=== PATIENT | male | born 1970 | race Caucasian/White ===

== ENCOUNTER → 2019-12-22 15:06 | Outpatient (CLI) | payer SELFPAY ==
--- NOTE | 2019-12-22 15:20 | RAD_ITS ---
STUDY: X-RAY CHEST REASON FOR EXAM: Male, 49 years old. COUGH -- TIGHTNESS 4 DAYS -- HAD PNEUMONIA IN SUMMER TECHNIQUE: PA and lateral views of the chest. COMPARISON: None. FINDINGS: Status post anterior cervical discectomy and fusion lower cervical spine. The lungs are clear and expanded. There is no demonstrated pleural abnormality. Normal size heart. Normal mediastinum and wild. Normal visualized pulmonary arteries. Normal visualized aortic arch and descending thoracic aorta. Normal visualized thoracic spine. Normal visualized ribs, clavicles, and shoulders. There is no demonstrated abnormality of the visualized soft tissue structures of the upper abdomen. RAD/Chest PA and Lateral IMPRESSION: Normal x-ray examination of the chest. Electronically Signed: Juanjose Coats MD at 12:29 EDT Tel , Service support ,
== END ==
PROVIDERS: PCP Internal Medicine; Referring Provider Internal Medicine; Visit Provider Internal Medicine
DX: R05 Cough (principal)
CPT/HCPCS: 71046

== ENCOUNTER → 2021-08-26 | Outpatient (CLI) | payer SELFPAY ==
--- NOTE | 2021-08-26 10:54 | US_ITS ---
STUDY: SCROTUM ULTRASOUND REASON FOR EXAM: Male, 51 years old. TESTICULAR MASS TECHNIQUE: Ultrasound evaluation of the scrotum was performed with color Doppler and static solorzano-scale imaging. COMPARISON: None. FINDINGS: RIGHT TESTICLE INTRATESTICULAR: There is a normal size of the right testicle. The right testicle measures 3.7 x 2.6 cm. There is a homogenous echotexture. There is normal arterial and normal venous vascularity. There is no demonstrated right testicular mass or cyst. EXTRATESTICULAR: The epididymis is normal in size. The epididymis head measures 1.5 cm. There is normal vascularity of the epididymis. There is a well-defined cystic structure within the epididymis, without internal echoes, consistent with an epididymal cyst. This measures 3 mm and 6mm. There is no demonstrated hydrocele. There is no demonstrated varicocele. There is no demonstrated extratesticular mass or cyst. LEFT TESTICLE INTRATESTICULAR: There is a normal size of the left testicle. The left testicle measures 3.4 x 2.1 cm. There is a homogenous echotexture. There is normal arterial and normal venous vascularity. There is no demonstrated left testicular mass or cyst. EXTRATESTICULAR: The epididymis is normal in size. The epididymis head measures 2.9 x 0.7 cm. There is normal vascularity of the epididymis. There is no demonstrated epididymal cystic structure. There is no demonstrated hydrocele. There is no demonstrated varicocele. There is no demonstrated extratesticular mass or cyst. US/Testicular with Arterial Flow IMPRESSION: There are no acute findings of the bilateral testicles without evidence for torsion. There is a right epididymal cyst correlating to the patient''s palpable abnormality. Electronically Signed: Christiano Swanson MD at 17:42 EDT ,
== END | disposition home or self-care (01) ==
LOC: US 10:53
PROVIDERS: PCP Internal Medicine; Referring Provider Internal Medicine; Visit Provider Internal Medicine
DX: N50.89 Other specified disorders of the male genital organs (principal)
CPT/HCPCS: 76870; 93976

== ENCOUNTER 2021-09-22 09:52 | Observation (INO) | payer OTHER, SELFPAY ==
[2021-09-22 09:53] VITALS: BP 112/74; PULSE 82; RESP 14; TEMP 36.4; O2SAT 100; BMI 28.1
--- NOTE | 2021-09-22 10:10 | CT_ITS ---
EXAM: CT ABDOMEN AND PELVIS WITHOUT INTRAVENOUS CONTRAST CLINICAL INDICATION: WITH 5MM LEFT KIDNEY STONE DX YESTERDAY AT THE MEDICAL CENTER WHERE HE WAS SEEN TWICE FOR PAIN CONTROL WITH NO RELIEF. D/C WITH A PAIN MEDICATION AND ZOFRAN + PHENERGAN WITH NO RELIEF. TECHNIQUE: Helically acquired images were obtained of the abdomen and pelvis without intravenous contrast. This CT exam was performed using one or more of the following dose reduction techniques: automated exposure control, adjustment of the mA and/or kV according to patient size, and/or use of iterative reconstruction technique. This report was created using [employer] technology. RADIATION DOSE: CTDIvol = 8.53 mGy, DLP = 507.29 mGy-cm COMPARISON: None FINDINGS: LOWER THORAX: Mild atelectasis in the lung bases. No cardiomegaly. No significant pericardial effusion. ABDOMEN: LIVER: Unremarkable. Homogeneous. GALLBLADDER AND BILE DUCTS: Unremarkable. No calcified gallstones. No gallbladder distention or wall edema. No intra- or extrahepatic biliary ductal dilation. PANCREAS: Unremarkable. No focal cystic mass. SPLEEN: Unremarkable. Normal size without focal cystic or solid mass. ADRENALS: Unremarkable. No nodules. KIDNEYS AND URETERS: 3.5 mm calculus at the left UVJ with trace hydronephrosis and mild hydroureter. Mild fat induration adjacent to the left kidney and left ureter. Normal renal size and position. STOMACH AND BOWEL: Unremarkable. No stomach or bowel distention. No focal inflammatory change. PELVIS: APPENDIX: No evidence of acute appendicitis. BLADDER: Unremarkable. REPRODUCTIVE: Unremarkable as visualized. No mass. ABDOMEN and PELVIS: INTRAPERITONEAL SPACE: Unremarkable. No ascites or other fluid collection. No free air. BONES/JOINTS: Unremarkable. No suspicious lytic or blastic abnormality. SOFT TISSUES: Unremarkable. No discrete abdominal or pelvic wall hernia. VASCULATURE: Unremarkable. Abdominal aorta is non-dilated. LYMPH NODES: Mildly enlarged retroperitoneal lymph nodes with short axis measuring up to [address]/Abdomen/Pelvis without Cont IMPRESSION: 3.5 mm calculus at the left UVJ with trace hydronephrosis and mild hydroureter. Left perinephric/periureteral stranding with reactive-appearing retroperitoneal lymph nodes just possibility of urinary tract infection. Recommend correlating with urinalysis. Electronically Signed: Devyn Weeks MD ([place]) at 11:37 EDT ,
--- NOTE | 2021-09-22 10:11 | EDS_ITS ---
HPI History of Present Illness Chief Complaint: Flank Pain Informant: patient and spouse/S.O. Narrative Narrative: 1-year-old male presenting to the emergency room chief complaint of left flank pain. Patient states that yesterday he was at an outside hospital and was diagnosed with a 5 mm proximal ureteral kidney stone. He states that he returned for a second visit due to vomiting and pain control. He states that the are advised that should he need to come to the hospital again that he should come to [place] because that facility did not have a urologist. Patient notes persistent vomiting and flank pain. PFSH PFSH Allergy/AdvReac Type Severity Reaction Status Date / Time acetaminophen [From Percocet] AdvReac Nausea Verified 09/22/21 09:55 oxycodone [From Percocet] AdvReac Nausea Verified 09/22/21 09:55 Social History (Updated 09/22/21 @ 10:[address] Vasquez Garcia, DO) household members: spouse current gender identity: male Smoking Status: Never smoker substance use type: does not use ROS ROS ED Constitutional Constitutional ED: Denies chills, fever(s) or weight loss Eyes Eyes: Denies change in vision or diplopia ENT ENT ED: Denies ear pain, rhinorrhea or sore throat Cardiovascular Cardiovascular: Denies chest pain, orthopnea, palpitations or racing heartbeat Respiratory/Chest Respiratory/Chest: Denies cough, dyspnea or orthopnea Gastrointestinal Gastrointestinal: Reports abdominal pain, nausea and vomiting; Denies diarrhea Genitourinary Genitourinary ED: Denies dysuria, hematuria or urinary frequency Musculoskeletal Musculoskeletal: Reports back pain; Denies arthralgias or myalgias Integumentary Denies abscess or rash Neurologic Neurologic: Denies headache(s) or weakness Psychiatric Psychiatric: Denies anxiety, depression, suicidal ideation or suicidal thoughts Endocrine Endocrinology: Denies polydipsia, polyphagia or polyuria Allergic/Immunologic Allergic/Immunologic ED: Denies mouth swelling, tongue swelling or urticaria EXAM Physical Exam Const Vital Signs: 09/22/21 09:53 Temperature 97.6 F L Temperature Source Temporal Pulse Rate 82 Respiratory Rate 14 Blood Pressure 112/74 Blood Pressure Mean 86 Pulse Ox 100 Oxygen Delivery Method Room Air Positive well nourished and well developed General Appearance ED: well developed HEENT Reports normocephalic, head/scalp atraumatic and moist mucous membranes Eyes PERRL and EOMs intact bilaterally Neck no lymphadenopathy, supple and no JVD Resp normal respiratory effort and clear to auscultation bilaterally Cardio regular rate, regular rhythm and no murmurs GI Palpation: soft and tender LLQ Back/Spine no CVA tenderness and normal ROM Extremity normal to inspection General Extremety ED: Negative for edema General Extremity: Negative for edema Neuro oriented x3 and CN's II-XII intact bilaterally Sensorium / Orientation: alert Motor Exam: strength 5/5 throughout Psych mental status grossly normal Mood & Affect: Negative for depressed or tearful Skin no rashes or lesions noted and no wounds MDM MDM MDM Narrative Medical decision making narrative: IV was established and the patient received Toradol morphine Zofran and fluids. Patient's white count is elevated at 16.4. Creatinine 1.68 and I do not have an old creatinine to compare to. Urinalysis shows 0-5 white cells 0-5 squamous cells no red cells and no bacteria. CT of the abdomen pelvis was obtained which demonstrates a 3.5 mm distal ureteral stone at the UVJ. There is some associated hydronephrourete as well as perinephric and periureteral stranding and reactive nodes. Clinically the patient is doing better. This is his third emergency department visit in 24 hours. I spoke with our urologist Dr. Barkley and the patient will be admitted for further care and observation. Lab Data Attestation: I reviewed the patient's lab results. Labs: Laboratory Results - last 24 hr 09/22/21 09/22/21 09/22/21 11:00 11:00 11:27 WBC 16.4 H RBC 4.71 Hgb 14.4 Hct 41.7 MCV 88.5 MCH 30.6 MCHC 34.5 RDW Std Deviation 41.2 RDW Coeff of Linda 12.7 Plt Count 173 MPV 10.7 Immature Gran % (Auto) 0.400 Neut % (Auto) 82.3 H Lymph % (Auto) 7.9 L [place] % (Auto) 9.0 Eos % (Auto) 0.2 Baso % (Auto) 0.2 Absolute Neuts (auto) 13.5 H Absolute Lymphs (auto) 1.29 Nucleated RBC % 0 Sodium 139 Potassium 4.1 Chloride 109 H Carbon Dioxide 27.0 Anion Gap 3 L BUN 23 H Creatinine 1.68 H Estim Creat Clear Calc 48.09 Est GFR (MDRD) Af Amer 55 L Est GFR (MDRD) Non-Af 46 L BUN/Creatinine Ratio 13.7 Glucose 115 H Calcium 8.8 Urine Color Yellow Urine Clarity Clear Urine pH 5.0 Ur Specific [place] 1.025 Urine Protein 15 H Urine Glucose (UA) Normal Urine Ketones 5 H Urine Occult Blood Negative Urine Nitrite Negative Urine Bilirubin Negative Urine Urobilinogen Normal Ur Leukocyte Esterase Negative Urine RBC 0 SEEN Urine WBC 0-5 SEEN Ur Squamous Epith Cells 0-5 SEEN Urine Bacteria 0 SEEN Urine Mucus 0 SEEN Radiography Diagnostic Testing: Clinical Impression(s) from Imaging Studies Abdomen/Pelvis CT 09/22/21 10:10 IMPRESSION: 3.5 mm calculus at the left UVJ with trace hydronephrosis and mild hydroureter. Left perinephric/periureteral stranding with reactive-appearing retroperitoneal lymph nodes just possibility of urinary tract infection. Recommend correlating with urinalysis. Electronically Signed: Devyn Weeks MD ([place]) at 11:37 EDT Reading Location ID and State: / [place] , Service support , Discharge Plan Dx/Rx/DC Orders Clinical Impression: Renal colic on left side, Kidney stone on left side, Vomiting, Hydronephrosis, Hydroureter Disposition Disposition: Acute Care [facility]
[2021-09-22] MEDS: 0.9% Normal Saline 1,000 ML 999 ML IV (11:00)
[2021-09-22] MEDS: Ketorolac 30 MG/ML Syringe IV (11:00)
[2021-09-22] MEDS: Morphine 4 MG/ML Syringe IV ×2 (11:01→12:17)
[2021-09-22] MEDS: Ondansetron 4 MG/2 ML Vial IV ×2 (11:01→12:16)
[2021-09-22 11:10] LABS: Absolute Lymphocyte Count 1.29 X10^3/uL (0.83-4.51); Absolute Neutrophil Count 13.5 X10^3/uL (2.0-7.7); Basophil# 0.03 X10^3/uL; Basophil% 0.2 % (0-1); Eosinophil# 0.03 X10^3/uL; Eosinophils% 0.2 % (0-5); Hematocrit 41.7 % (40-54); Hemoglobin 14.4 g/dL (13.0-16.5); Lymphocyte # 1.29 X10^3/ul (0.83-4.51); Lymphocyte % 7.9 % (19-41); Mean Corp Hgb Conc 34.5 g/dL (32-36); Mean Corpuscular Hgb 30.6 pg (27.0-32.0); Mean Corpuscular Volume 88.5 fL (80-94); Mean Platelet Vol. 10.7 fl (6.2-12.0); Monocyte# 1.48 X10^3/uL; NRBC Flagged by Analyzer 0 % (0-5); Neutrophil % 82.3 % (47-70); Platelet Count 173 K/mm3 (150-450); RBC Distribution Width CV 12.7 % (11.6-14.6); RBC Distribution Width SD 41.2 fl (35.1-43.9); Red Blood Count 4.71 M/mm3 (4.6-6.2); White Blood Count 16.4 K/mm3 (4.4-11.0)
[2021-09-22 11:23] LABS: Anion Gap 3 (5-15); BUN 23 mg/dL (7-18); BUN/Creat Ratio 13.7 RATIO (10-20); Calcium,Total 8.8 mg/dL (8.5-10.1); Chloride 109 mmol/L (98-107); Creatinine, Serum 1.68 mg/dL (0.70-1.30); EST Glomerular Filtration Rate 46 mL/min (>60); Est Glom Filt Rate - Afr Amer 55 mL/min (>60); Estimated Creatinine Clearance 48.09 ml/min; Glucose 115 mg/dL (74-106); Potassium 4.1 mmol/L (3.5-5.1); Sodium Level 139 mmol/L (136-145)
[2021-09-22 11:35] LABS: Bacteria 0 SEEN /hpf (None Seen); Mucous, Urine 0 SEEN /hpf (<or=2+); Red Blood Cells-Urine 0 SEEN /hpf (0-5)
[2021-09-22 11:41] LABS: Color, Urine Yellow (Yellow); Glucose, Dipstick Normal (Normal); Ketone-Dipstick 5 mg/dl (Negative); Leukocyte Esterase-Dipstick Negative /ul (Negative); Nitrite-Dipstick Negative (Negative); Occult Blood-Urine Negative /ul (Negative); Protein-Dipstick 15 mg/dl (Negative); Specific Gravity, Urine 1.025 (1.002-1.030); Urine Bilirubin Dipstick Negative (Negative); Urine Clarity Clear (Clear); Urine Urobilinogen Normal (Normal)
[2021-09-22 12:02] LABS: White Blood Cells 0-5 SEEN /hpf (0-5)
[2021-09-22 12:03] LABS: Squamous Epithelial Cells - UA 0-5 SEEN /hpf (0-5)
[2021-09-22 12:27] VITALS: BP 118/71; PULSE 81; RESP 14; TEMP 36.5
--- NOTE | 2021-09-22 12:36 | PCM.HP.STD ---
HPI - General General Date of Admission: 09/22/21 Date of Service: 09/22/21 Chief Complaint: Left kidney stone nausea vomiting HPI Narrative IZABELLA TONY, is a 51 M who presents with a 3.5 mm stone in the distal left ureter this is the third time in the emergency room with severe nausea vomiting and severe pain off and on has not been able to pass a stone and continues to have severe pain from the stone. [facility] Home Medications dextroamphetamine-amphetamine ER 15 mg 24hr capsule,extend release 1 cap PO DAILY 09/22/21 [History Last Taken Unknown] hydrocodone-acetaminophen 5-325mg 5mg-325mg 1 tab PO Q6H PRN PRN Pain 09/22/21 [History Last Taken Unknown] ondansetron 4 mg disintegrating tablet 1 tab PO Q8 PRN Nausea 09/22/21 [History Last Taken Unknown] tamsulosin 0.4 mg capsule 1 cap PO DAILY 09/22/21 [History Last Taken Unknown] zolpidem 10 mg tablet 1 tab PO DAILY 09/22/21 [History Last Taken Unknown] Allergy/AdvReac Type Severity Reaction Status Date / Time acetaminophen [From Percocet] AdvReac Nausea Verified 09/22/21 09:55 oxycodone [From Percocet] AdvReac Nausea Verified 09/22/21 09:55 Social History household members: spouse current gender identity: male Smoking Status: Never smoker substance use type: does not use ROS Constitutional Constitutional: Denies chills, fever(s) or malaise Eyes Eyes: Denies blurry vision or change in vision ENT HEENT: Reports none Cardiovascular Cardiovascular: Denies chest pain or palpitations Respiratory/Chest Respiratory/Chest: Denies cough or shortness of breath with exertion Gastrointestinal Gastrointestinal: Denies abdominal pain, constipation or diarrhea Musculoskeletal Musculoskeletal: Denies back pain, joint stiffness or joint swelling Integumentary Integumentary: Denies dry skin, jaundice, lesions or rash Neurologic Neurologic: Denies confusion, syncope or weakness Psychiatric Psychiatric: Reports none; Denies anxiety or depression Endocrine Endocrinology: Denies excessive sweating, fatigue or flushing Hematologic/Lymphatic Hematologic/Lymphatic: Denies anemia, easy bleeding or easy bruising Vital Signs Vital Signs Vital Signs: 09/22/21 09:53 08/01/22 12:27 09/22/21 12:27 Temperature 97.6 F L 97.7 F L Temperature Source Temporal Oral Pulse Rate 82 81 81 Respiratory Rate 14 14 14 Blood Pressure 112/74 118/71 118/71 Blood Pressure Mean 86 86 86 Pulse Ox 100 Oxygen Delivery Method Room Air Weight Weight: 81.647 kg Body Mass Index (BMI) 28.1 Physical Exam Const alert and oriented x3 General Appearance: cooperative HEENT normocephalic, head/scalp atraumatic, EAC's normal and TM's normal bilaterally Eyes PERRL and EOMs intact bilaterally Pupil: sluggish Neck no lymphadenopathy, supple and no JVD General: trachea midline Lymph Lymphatic: no lymphadenopathy noted, lymphedema and lymphadenopathy Resp normal respiratory effort, normal air movement and clear to auscultation bilaterally Cardio regular rate, regular rhythm and peripheral pulses 2+ throughout GI soft to palpation, non-tender and non-distended Extremity normal capillary refill and no clubbing, cyanosis or edema General Extremity: no tenderness to palpation of joints or extremities Skin no rashes or lesions noted General Skin Exam: turgor normal Lesions: no lesions Rashes: no rashes Neuro CN's II-XII intact bilaterally Speech: speech normal Motor Exam: strength 5/5 throughout; Negative for general weakness Psych thought process normal, cooperative and affect normal Appearance: appropriate Results Medical Records Data Attestation: I reviewed the patient's medical records Lab / Micro Data Attestation: I reviewed the patient's lab results. Result Diagrams: 09/22/21 11:00 09/22/21 11:00 Labs: Laboratory Results - last 24 hr 09/22/21 11:00: WBC 16.4 H, RBC 4.71, Hgb 14.4, Hct 41.7, MCV 88.5, MCH 30.6, MCHC 34.5, RDW Std Deviation 41.2, RDW Coeff of Linda 12.7, Plt Count 173, MPV 10.7, Immature Gran % (Auto) 0.400, Neut % (Auto) 82.3 H, Lymph % (Auto) 7.9 L, [place] % (Auto) 9.0, Eos % (Auto) 0.2, Baso % (Auto) 0.2, Absolute Neuts (auto) 13.5 H, Absolute Lymphs (auto) 1.29, Nucleated RBC % 0 09/22/21 11:00: Sodium 139, Potassium 4.1, Chloride 109 H, Carbon Dioxide 27.0, Anion Gap 3 L, BUN 23 H, Creatinine 1.68 H, Estim Creat Clear Calc 48.09, Est GFR (MDRD) Af Amer 55 L, Est GFR (MDRD) Non-Af 46 L, BUN/Creatinine Ratio 13.7, Glucose 115 H, Calcium 8.8 09/22/21 11:27: Urine Color Yellow, Urine Clarity Clear, Urine pH 5.0, Ur Specific [place] 1.025, Urine Protein 15 H, Urine Glucose (UA) Normal, Urine Ketones 5 H, Urine Occult Blood Negative, Urine Nitrite Negative, Urine Bilirubin Negative, Urine Urobilinogen Normal, Ur Leukocyte Esterase Negative, Urine RBC 0 SEEN, Urine WBC 0-5 SEEN, Ur Squamous Epith Cells 0-5 SEEN, Urine Bacteria 0 SEEN, Urine Mucus 0 SEEN Radiology Impression Abdomen/Pelvis CT 09/22/21 10:10 IMPRESSION: 3.5 mm calculus at the left UVJ with trace hydronephrosis and mild hydroureter. Left perinephric/periureteral stranding with reactive-appearing retroperitoneal lymph nodes just possibility of urinary tract infection. Recommend correlating with urinalysis. Electronically Signed: Devyn Weeks MD ([place]) at 11:37 EDT Reading Location ID and State: [address] [place] [address] , Service support , Assessment & Plan Assessment/Plan (1) Renal colic on left side: PLAN: Admit for IV fluids Flomax pain control check a KUB tomorrow morning plan for intervention if he fails to pass a stone. (2) Kidney stone on left side:
[2021-09-22 14:06] VITALS: BMI 28.1
[2021-09-22 14:30] VITALS: BP 114/73; PULSE 74; RESP 14; TEMP 36.9; O2SAT 100
[2021-09-22] MEDS: 0.9% Normal Saline 1,000 ML 125 ML IV ×2 (14:33→22:00)
[2021-09-22] MEDS: 0.9% Saline Lock 10 ML Syringe IV ×2 (14:33→17:47)
[2021-09-22] MEDS: Morphine 2 MG/ML Syringe IV ×2 (14:33→19:49)
[2021-09-22] MEDS: Tamsulosin HCl 0.4 MG Capsule PO (17:46)
[2021-09-22] MEDS: Ketorolac 15 MG/ML Vial IV (17:46)
[2021-09-22 19:53] VITALS: BP 118/71; PULSE 80; RESP 16; TEMP 37.2; O2SAT 99
[2021-09-23] MEDS: Ketorolac 15 MG/ML Vial IV ×3 (00:29→18:09)
[2021-09-23] MEDS: 0.9% Saline Lock 10 ML Syringe IV ×2 (00:29→08:59)
[2021-09-23 03:08] VITALS: BP 112/68; PULSE 72; RESP 16; TEMP 37.2; O2SAT 99
--- NOTE | 2021-09-23 05:00 | RAD_ITS ---
EXAM: XR ABDOMEN, 1 VIEW CLINICAL INDICATION: kidney stone TECHNIQUE: Frontal supine view of the abdomen/pelvis. This report was created using [employer] report generation technology. COMPARISON: None. FINDINGS: LOWER THORAX: No acute pathology. GASTROINTESTINAL TRACT: Unremarkable. Non-obstructive. No bowel or stomach distention. ORGANS: Unremarkable as visualized. No organomegaly. No abnormal calcifications. BONES/JOINTS: Unremarkable. SOFT TISSUES: No acute pathology. There is a small calcification measuring about 2 mm overlying the left side of the sacrum medial to the expected course of the ureter. Other phleboliths in the pelvis. RAD/Abdomen Single View IMPRESSION: No definite stones overlying the kidneys or along the course of the ureters. Phleboliths in the pelvis. Electronically Signed: Sav Ortiz MD at 5:19 EDT ,
[2021-09-23] MEDS: 0.9% Normal Saline 1,000 ML 125 ML IV ×2 (05:42→16:53)
[2021-09-23] MEDS: Ondansetron 4 MG/2 ML Vial IV ×4 (05:44→23:01)
--- NOTE | 2021-09-23 06:47 | PCM.CONS.B ---
Consult Date of Consult: 09/23/21 Reason for Consult 51-year-old male admitted for kidney stone only about 3.5 mm in size distal left ureter, the straining all the urine no stone has been seen KUB I think I can see the stone in the distal ureter on the left side. Patient is feeling much better after hydration pain medications he had shower no more severe colic still has a little bit of pressure on the left side but has not passed a stone Plan will be to taken the surgery tomorrow ureteroscopy laser basket and possible stent if he fails to pass a stone conservatively.
[2021-09-23 09:00] VITALS: BP 128/82; PULSE 86; RESP 16; TEMP 36.9; O2SAT 96
[2021-09-23] MEDS: Morphine 2 MG/ML Syringe IV ×6 (10:21→23:03)
[2021-09-23 15:00] VITALS: BP 139/88; PULSE 79; RESP 16; TEMP 36.8; O2SAT 96
[2021-09-23] MEDS: Tamsulosin HCl 0.4 MG Capsule PO (17:18)
[2021-09-23 20:25] VITALS: BP 147/95; PULSE 85; RESP 16; TEMP 36.6; O2SAT 96
[2021-09-24] VITALS (8 sets, daily range): BP systolic 108–137; BP diastolic 66–87; PULSE 75–90; RESP 16–18; TEMP 36.6–36.8; O2SAT 94–98; BMI 28.1
[2021-09-24] MEDS: 0.9% Normal Saline 1,000 ML 125 ML IV ×2 (00:10→07:46)
[2021-09-24] MEDS: Ketorolac 15 MG/ML Vial IV ×3 (00:10→13:34)
[2021-09-24] MEDS: Morphine 2 MG/ML Syringe IV ×3 (04:14→12:59)
[2021-09-24 06:19] LABS: Absolute Lymphocyte Count 1.26 X10^3/uL (0.83-4.51); Absolute Neutrophil Count 7.5 X10^3/uL (2.0-7.7); Basophil# 0.04 X10^3/uL; Basophil% 0.4 % (0-1); Eosinophil# 0.34 X10^3/uL; Eosinophils% 3.3 % (0-5); Hematocrit 36.5 % (40-54); Hemoglobin 12.3 g/dL (13.0-16.5); Lymphocyte # 1.26 X10^3/ul (0.83-4.51); Lymphocyte % 12.3 % (19-41); Mean Corp Hgb Conc 33.7 g/dL (32-36); Mean Corpuscular Hgb 30.2 pg (27.0-32.0); Mean Corpuscular Volume 89.7 fL (80-94); Mean Platelet Vol. 10.4 fl (6.2-12.0); Monocyte# 1.03 X10^3/uL; Monocyte% 10.1 % (0-10); NRBC Flagged by Analyzer 0 % (0-5); Neutrophil # 7.51 X10^3/uL (2.7-7.7); Neutrophil % 73.6 % (47-70); Platelet Count 151 K/mm3 (150-450); RBC Distribution Width CV 12.5 % (11.6-14.6); RBC Distribution Width SD 41.1 fl (35.1-43.9); Red Blood Count 4.07 M/mm3 (4.6-6.2); White Blood Count 10.2 K/mm3 (4.4-11.0)
[2021-09-24 06:49] LABS: Anion Gap 3 (5-15); BUN 14 mg/dL (7-18); BUN/Creat Ratio 15.6 RATIO (10-20); Chloride 115 mmol/L (98-107); EST Glomerular Filtration Rate 94 mL/min (>60); Est Glom Filt Rate - Afr Amer 114 mL/min (>60); Estimated Creatinine Clearance 89.77 ml/min; Glucose 107 mg/dL (74-106); Potassium 3.9 mmol/L (3.5-5.1); Sodium Level 143 mmol/L (136-145)
[2021-09-24] MEDS: Ondansetron 4 MG/2 ML Vial IV ×2 (07:34→11:55)
[2021-09-24] MEDS: 0.9% Saline Lock 10 ML Syringe IV (12:59)
--- NOTE | 2021-09-24 15:20 | CALC_PTH ---
PATIENT: IZABELLA TONY LOC: [facility]3 U#:[id number] AGE/SX: 51/M ROOM: [facility] RE09/22/[address]: Dr. Itz Barkley MD : 1970 BED: 1 DIS: 09/24/2021 SPEC #: [id number] RECD: 09/24/21 16:19 STATUS: MATIAS STAPLETON #: [id number] FOZIA: 09/24/21 15:[address]: Itz Barkley DEPT: SURGICAL PATHOLOGY RECD BY: Janet Ahmadi ENTERED: 09/25/21 09:42 SP TYPE: Calculi OTHR DR: Dr. Mary Cole, DO Tissues: CALCULI Procedures: Surgery Specimen Level I HEADER OPERATION: Cysto, balloon dilation, ureteroscopy, extraction stone PRE-OP DIAGNOSIS: Renal colic left side, kidney stone left side TISSUE SUBMITTED: Kidney stone (calculi) GROSS DIAGNOSIS Fragment of stone, clinically left kidney stone. TESS:alex 09/26/2021 COMMENT The calculus is submitted in its entirety for chemical stone analysis. The results from this study will be reported separately. GROSS DESCRIPTION Received is one container labeled with the patient's name and not further designated. The specimen consists of a fragment of brownish-black stone measuring 0.3 x 0.2 x 0.1 cm. The entire specimen is submitted for stone analysis. / TESS:alex 09/25/2021 CPT: 81837
--- NOTE | 2021-09-24 15:26 | PCM.DC.SUM ---
Providers Date of Admission: 09/22/21 Primary Care Physician: Dr. Mary Cole DO Reason For Visit: KIDNEY STONE Diagnosis Discharge Diagnosis (1) Renal colic on left side: Status: Acute Code(s): N23 - Unspecified renal colic (2) Kidney stone on left side: Status: Acute Code(s): N20.0 - Calculus of kidney Medications at Discharge Home Medications dextroamphetamine-amphetamine ER 15 mg 24hr capsule,extend release 1 cap PO DAILY 09/22/21 ondansetron 4 mg disintegrating tablet 1 tab PO Q8 PRN Nausea 09/22/21 tamsulosin 0.4 mg capsule 1 cap PO DAILY 09/22/21 zolpidem 10 mg tablet 1 tab PO DAILY 09/22/21 ciprofloxacin HCl 500 mg tablet (Cipro) 500 mg PO BID #10 tabs 09/24/21 ibuprofen 600 mg tablet 600 mg PO Q6H PRN fever or pain #20 tabs 09/24/21 Hospital Course Summary of Care Provided Hospital Course: Failed to pass stone and had surgerical intevention on 09/24 Physical Exam Const alert and oriented x3 General Appearance: cooperative HEENT normocephalic, head/scalp atraumatic, EAC's normal and TM's normal bilaterally Eyes PERRL and EOMs intact bilaterally Pupil: sluggish Neck no lymphadenopathy, supple and no JVD General: trachea midline Lymph Lymphatic: no lymphadenopathy noted, lymphedema and lymphadenopathy Resp normal respiratory effort, normal air movement and clear to auscultation bilaterally Cardio regular rate, regular rhythm and peripheral pulses 2+ throughout GI soft to palpation, non-tender and non-distended Extremity normal capillary refill and no clubbing, cyanosis or edema General Extremity: no tenderness to palpation of joints or extremities Skin no rashes or lesions noted General Skin Exam: turgor normal Lesions: no lesions Rashes: no rashes Neuro CN's II-XII intact bilaterally Speech: speech normal Motor Exam: strength 5/5 throughout; Negative for general weakness Psych thought process normal, cooperative and affect normal Appearance: appropriate Weight / BMI Weight Weight: 81.647 kg Body Mass Index (BMI) 28.1 ABG / Lab / Microbiology Data Result Diagrams: 09/24/21 05:56 09/24/21 05:56 Laboratory: Laboratory Results - last 24 hr 09/24/21 05:56: WBC 10.2, RBC 4.07 L, Hgb 12.3 L, Hct 36.5 L, MCV 89.7, MCH 30.2, MCHC 33.7, RDW Std Deviation 41.1, RDW Coeff of Linda 12.5, Plt Count 151, MPV 10.4, Immature Gran % (Auto) 0.300, Neut % (Auto) 73.6 H, Lymph % (Auto) 12.3 L, [place] % (Auto) 10.1 H, Eos % (Auto) 3.3, Baso % (Auto) 0.4, Absolute Neuts (auto) 7.5, Absolute Lymphs (auto) 1.26, Nucleated RBC % 0 09/24/21 05:56: Sodium 143, Potassium 3.9, Chloride 115 H, Carbon Dioxide 25.0, Anion Gap 3 L, BUN 14, Creatinine 0.90, Estim Creat Clear Calc 89.77, Est GFR (MDRD) Af Amer 114, Est GFR (MDRD) Non-Af 94, BUN/Creatinine Ratio 15.6, Glucose 107 H, Calcium 8.0 L D/C Instructions Discharge Diet: No restrictions Discharge Activity: Return to Normal Activity Please Follow Up With: Itz Barkley MD When: call for appt Meaningful Use Info Meaningful Use Diagnoses (Choose all that apply): None applicable Discharge Plan Admission Admit Date/Time: 09/22/21 12:32 Primary Reason for Your Visit: left kidney stone Attending Provider: Itz Barkley Primary Care Provider: Mary Cole Discharge Orders/Prescriptions Prescriptions: New ciprofloxacin HCl [Cipro] 500 mg tablet 500 mg PO BID Qty: 10 0RF ibuprofen 600 mg tablet 600 mg PO Q6H PRN (Reason: fever or pain) Qty: 20 0RF Continued tamsulosin 0.4 mg capsule 1 cap PO DAILY Label Comments: TAKE 1 CAPSULE BY MOUTH ONCE DAILY zolpidem 10 mg tablet 1 tab PO DAILY Label Comments: TAKE 1 TABLET BY MOUTH EVERY DAY AT BEDTIME ondansetron 4 mg tablet,disintegrating 1 tab PO Q8 PRN (Reason: Nausea) Label Comments: DISSOLVE 1 TABLET IN MOUTH EVERY 8 HOURS NEEDED FOR NAUSEA AND VOMITING dextroamphetamine-amphetamine 15 mg capsule,extended release 24hr 1 cap PO DAILY Label Comments: TAKE 1 CAPSULE BY MOUTH DAILY EVERY MORNING Discontinued hydrocodone-acetaminophen 5-325 mg tablet 1 tab PO Q6H PRN PRN (Reason: Pain) Label Comments: TAKE 1 TABLET BY MOUTH EVERY 6 HOURS NEEDED FOR PAIN Referrals / Follow Up: Itz Barkley MD [Med Staff - Active Staff] - Mary Cole DO [Primary Care Provider] - Disposition Discharge Orders: Discharge Patient (Routine); Ordered 09/24/21 Ordered By: Dr. Itz Barkley
--- NOTE | 2021-09-24 15:28 | DCINST_ITS ---
Discharge Instructions Diet Discharge Diet: No restrictions and Light diet - advance as tolerated Activity Discharge Activity: Return to Normal Activity May shower in (days): 1 Dressing / Incision Call your doctor if you observe: Fever of 101 or Higher Follow Up Care Please Follow Up With: Itz Barkley MD When: call for appt. Test Results: Test results from this visit will be discussed in further detail at your follow- up appointment, if applicable. Discharge Plan Admission Admit Date/Time: 09/22/21 12:32 Primary Reason for Your Visit: left kidney stone Attending Provider: Itz Barkley Primary Care Provider: Mary Cole Discharge Orders/Prescriptions Prescriptions: New ciprofloxacin HCl [Cipro] 500 mg tablet 500 mg PO BID Qty: 10 0RF ibuprofen 600 mg tablet 600 mg PO Q6H PRN (Reason: fever or pain) Qty: 20 0RF Continued tamsulosin 0.4 mg capsule 1 cap PO DAILY Label Comments: TAKE 1 CAPSULE BY MOUTH ONCE DAILY zolpidem 10 mg tablet 1 tab PO DAILY Label Comments: TAKE 1 TABLET BY MOUTH EVERY DAY AT BEDTIME ondansetron 4 mg tablet,disintegrating 1 tab PO Q8 PRN (Reason: Nausea) Label Comments: DISSOLVE 1 TABLET IN MOUTH EVERY 8 HOURS NEEDED FOR NAUSEA AND VOMITING dextroamphetamine-amphetamine 15 mg capsule,extended release 24hr 1 cap PO DAILY Label Comments: TAKE 1 CAPSULE BY MOUTH DAILY EVERY MORNING Discontinued hydrocodone-acetaminophen 5-325 mg tablet 1 tab PO Q6H PRN PRN (Reason: Pain) Label Comments: TAKE 1 TABLET BY MOUTH EVERY 6 HOURS NEEDED FOR PAIN Referrals / Follow Up: Itz Barkley MD [Med Staff - Active Staff] - Mary Cole DO [Primary Care Provider] - Disposition Discharge Orders: Discharge Patient (Routine); Ordered 09/24/21 Ordered By: Dr. Itz Barkley
--- NOTE | 2021-09-24 16:01 | PCM.OPRPT ---
Report of Operation Date of Procedure: 09/24/21 Pre-Operative Diagnosis: Left ureteral calculi causing obstruction Post-Operative Diagnosis: Same Surgery/Procedure Performed:: Cystoscopy, left retrograde pyelogram interpretation of fluoroscopic images, balloon dilation of the left ureter, left ureteroscopy extraction of stone, left stent placement Description of Surgical Findings:: This is a patient who presents to the hospital for treatment for an obstructing distal ureter calculi. I discussed with the patient how the surgery would be performed and we reviewed the risks and benefits of the surgery. The risk and benefits include the risk of failure to remove the stone completely and that the patient may need multiple procedures. We discussed the risk of an infection, the risk of bleeding. We discussed the very rare risk of serious complicated injury to the ureter. The patient understands that if the stone is not able to be removed safely that we may abort the procedure and place a stent. After full discussion and all questions address with the patient the consent form was signed the side was marked appropriately and the patient was taken back to the operating room for the procedure. The patient was taken back to the operating room. After induction of anesthesia by the anesthesiology team the patient was placed in dorsolithotomy position. The genitals were prepped and draped in usual sterile fashion. I went into the bladder with a 21 [place] rigid cystourethroscope through the urethra. Upon entering the bladder I inspected the trigone the left and right ureteral orifice and the bladder itself. The left ureteral orifice was very inflamed and swollen I then cannulated the left ureteral orifice and advanced a 0.038 Glidewire up into the kidney. Then over the Glidewire I advanced a 5 Fr Ureteral catheter and performed a retrograde pyelogram with about 10cc of contrast, to delineate the anatomy and identify the stone location. Then a ureteral balloon dilator was advanced over the wire and the distal ureter was balloon dilated with a 12 Fr x 5cm balloon dilator. After 3 minutes of dilating the ureter the balloon was backloaded off the 0.038 glidewire then the safety wire was left in place. I then placed a second 0.038 Guidewire as a working wire and over the working 0.038 guidewire I went in with the abril rigide 7.5fr ureteroscope. I was able to go inside with the 7.5Fr abril rigid utereroscope and I pulled out the working guidewire and then through the 7.5 fr simirigid ureteroscope removed the stone from the bladder with a basket. The stone was sent off for analysis. A retrograde pyelogram was performed with 10cc of contrast and no extravasation of contrast or perforation was identified in the ureter there was some mild irritation of the ureter where the stone was located. I then backed out of the ureter left the wire in place and then over the 0.038 guidewire I placed a double coiled pigtail ureteral stent. The ureteral stent was advanced over the 0.038 guidewire under direct fluoroscopic guidance and direct cystoscopic visual guidance, once the stent was in good position I pulled the wire and the stent coiled in the kidney and bladder in good position. I then drained the patient's bladder and the cystoscope was removed and the patient was taken back to the recovery room in good position. The patient was given discharge instructions to call the office for instructions on when to come to the office to have the stent removed. Surgeon: Itz Barkley Type of Anesthesia: General Drains: left stent Complications none Admit VTE Documentation VTE Present on Admission: No VTE Mechan Device Prophylaxis: SCD's
--- NOTE | 2021-09-24 16:46 | CASEMGMT ---
Social Work SW met with pt's to discuss self pay status. Pt's states that pt is a member of a shared medical plan and has no concerns with financial liability from hospital stay. did inquire if there is a package self pay rate reduction. SW offered to contact [employer] and request they call pt to discuss this option. appreciative. NATE left with Krissy in PFS requesting she contact pt regarding private pay rates. ISMAEL Jimenes
== END 2021-09-24 18:23 | disposition home or self-care (01) ==
LOC: ED 13:00 → MS3 13:06
PROVIDERS: Anesthesiology; Admitting Provider Urology; Emergency Provider Emergency Medicine; PCP Internal Medicine; Visit Provider Urology
PROC: 0TJ98ZZ Inspection of Ureter, Via Natural or Artificial Opening Endoscopic (ICD-10-PCS; CPT 52352; principal; 2021-09-24 15:10)
DX: N13.2 Hydronephrosis with renal and ureteral calculous obstruction (principal); R11.10 Vomiting, unspecified; Z79.899 Other long term (current) drug therapy; F32.A Depression, unspecified
CPT/HCPCS: 52352; 52332; 00918; 36415; 74018; 74176; 76000; 80048; 81001; 82360; 85025; 88300; 96361; 96374; 96375; 96376; 99218; 99284; J7030; A4216; C1769; C2617; G0378; J2405

== ENCOUNTER → 2023-04-20 | Outpatient (CLI) | payer SELFPAY ==
--- NOTE | 2023-04-20 09:06 | RAD_ITS ---
EXAM: XR CHEST, 2 VIEWS CLINICAL INDICATION: COUGH TECHNIQUE: Frontal and lateral views of the chest. COMPARISON: December 22, 2019. FINDINGS: LUNGS AND PLEURAL SPACES: Unremarkable. No consolidation or edema. No pneumothorax. No effusion. HEART: Unremarkable. Cardiac silhouette not enlarged. MEDIASTINUM: Central airways and mediastinal contour are unremarkable. BONES/JOINTS: Stabilization plate at the lower cervical spine is again noted. No acute fracture. SOFT TISSUES: Unremarkable. RAD/Chest PA and Lateral IMPRESSION: No acute findings in the chest. Electronically Signed: Ghada Antunez MD at 7:41 EST ,
--- OUTSIDE RECORDS SUMMARY | 2023-04-20 09:54 | XMS RPT_ITS | CCD ---
Author Name Unknown Address [address] [place] [address] Organization [facility] Care Team Providers Care Buyer Assistant Name Role Phone SonyaKatyMary Unavailable Gravius, Stephie Unavailable Unavailable Luciana Ramires Unavailable Unavailable Sonya DO, Mary Unavailable [phone] Lakshmi Wasserman MA Unavailable Unavailable Rex Weinstein LPN Unavailable Unavailable Phoebe Juarez CNP Unavailable Donnie LIMA Stephie Unavailable Unavailable Unavailable Unavailable Sonya DO, Mary Unavailable Luca PHD, Jordan Molina Unavailable Ciesa, Phoebe Unavailable Ciesa, Phoebe Unavailable Filippo OLGUIN MD, Brandy Chamorro Unavailable Ninfa PATIENT MANAGER, Katie Unavailable Unavailable Slakathy HORTONN, Mecca Unavailable Unavailable Niru Ceron CNP Unavailable CONRADO OROPEZA NP Primary Care Unavailable CONRADO OROPEZA COATER ASSOCIATE Attending Unavailable CONRADO OROPEZA COATER ASSOCIATE Admitting Unavailable SONYA, MARY DO Consulting Unavailable PROVIDER, UNKNOWN Consulting Unavailable FAST, LINETTE DO Primary Care Unavailable FAST LINETTE DO Attending Unavailable FAST, LINETTE DO Admitting Unavailable SONYA, MARY DO Consulting Unavailable PROVIDER, UNKNOWN Consulting Unavailable CONRADO OROPEZA NP Primary Care Unavailable CONRADO OROPEZA COATER ASSOCIATE Attending Unavailable CONRADO OROPEZA COATER ASSOCIATE Admitting Unavailable SONYA, MARY DO Consulting Unavailable PROVIDER, UNKNOWN Consulting Unavailable SONYA MARY DO Referring Unavailable DR LINA BRADSHAW Primary Care Unavaila ble LEEANN, DR LINA Hurley Attending Unavaila ble LEEANN, DR LINA Hurley Admitting Unavaila ble SONYA, MARY DO Consulting Unavailable PROVIDER, UNKNOWN Consulting Unavailable SONYA, MARY DO Referring Unavailable ANGEL FREDERICK DO Primary Care Unavailable ANGEL FREDERICK DO Attending Unavailable ANGEL FREDERICK DO Admitting Unavailable SONYA, MARY DO Consulting Unavailable PROVIDER, UNKNOWN Consulting Unavailable SONYA, MARY DO Referring Unavailable SONYA, MARY DO Consulting Unavailable JEANMARIE, DR BRADLEY Thomas Primary Care Unavailable JEANMARIE, DR BRADLEY Thomas Attending Unavailable JEANMARIE, DR BRADLEY Thomas Admitting Unavailable PROVIDER, UNKNOWN Consulting Unavailable SONYA, MARY DO Referring Unavailable MURRY, DR BRADLEY Thomas Primary Care Unavailable JEANMARIE, DR BRADLEY Thomas Attending Unavailable JEANMARIE, DR BRADLEY Thomas Admitting Unavailable SONYA, MARY DO Consulting Unavailable PROVIDER, UNKNOWN Consulting Unavailable SONYA, MARY DO Consulting Unavailable MARIA DE JESUS CURRY MD Primary Care Unavailable MARIA DE JESUS CURRY MD Attending Unavailable PATRICIO, MARIA DE JESUS MALCOLM Admitting Unavailable PROVIDER, UNKNOWN Consulting Unavailable MARIA DE JESUS CURRY MD Primary Care Unavailable MARIA DE JESUS CURRY MD Attending Unavailable PATRICIO, MARIA DE JESUS MALCOLM Admitting Unavailable SONYA, MARY DO Consulting Unavailable PROVIDER, UNKNOWN Consulting Unavailable Manchak MOVIE STAR, Misa Unavailable Unavailable Karyna Gonzalez Unavailable Dr. Rickey Ren Unavailable Karlee Bar MA Unavailable Unavailable Sonya DO, Mary Attending Unavailable Sonya DO, Mary Consulting Unavailable Sonya DO, Mary Referring Unavailable ZAHRAA NEGRETE Primary Care Unavailable Zahraa Negrete Primary Care Provider [phone] Allergies Allergy Classification Reported Allergen(s) Allergy Type Date of Onset Reaction(s) Facility (20 sources) Acetaminophen / oxyCODONE; Translations: [Percocet *ANALGESICS - OPIOID*] Drug Allergy 3 Unknown [facility] Work Phone: Medications Current Medications Medication Drug Class(es) Dates Sig (Normalized) Sig (Original) amoxicillin 875 mg / clavulanate 125 mg oral tablet (19 sources) Penicillin-class Antibacterial Start: 09-20-2022 End: 09-27-2022 take 1 tablet by mouth every twelve hours amoxicillin-clavu lanic acid (AUGMENTIN) 875-125 mg per tablet Indications: Foot pain, right , Skin bullae on examination Take 1 tablet by mouth every 12 hours for 7 days. 14 tablet 0 09/20/2022 09/27/2022 Active Completed/Discontinued Medications Medication Drug Class(es) Dates Sig (Normalized) Sig (Original) 24 hr amphetamine aspartate 3.75 mg / amphetamine sulfate 3.75 mg / dextroamphetamine saccharate 3.75 mg / dextroamphetamine sulfate 3.75 mg extended release oral capsule (20 sources) Central Nervous System Stimulant Start: 09-22-2021 amphetamine-dext roamphetamine XR (ADDERALL XR) 15 mg biphasic capsule Take by mouth. 0 09/22/2021 Active Problems Active Problems Problem Classification Problem Date Documented Date Episodic/Chronic Abdominal hernia (20 sources) Umbilical hernia without obstruction or gangrene; Translations: [Umbilical hernia] 11-15-2019 Episodic Abdominal pain (3 sources) Unspecified abdominal pain; Translations: [Unspecified abdominal pain] Onset: 09-09-2021 Episodic Attention-deficit conduct and disruptive behavior disorders (20 sources) Attention deficit hyperactivity disorder, predominantly inattentive type; Translations: [ADD (attention deficit disorder)] 11-15-2019 Chronic Past or Other Problems Problem Classification Problem Date Documented Date Episodic/Chronic Allergic reactions (1 source) Allergy status to narcotic agent status; Translations: [Allergy status to narcotic agent] Onset: 02-26-2021 Episodic E Codes: Fall (1 source) Fall on and from ladder, initial encounter; Translations: [Fall on and from ladder, initial encounter] Onset: 02-26-2021 Episodic Encephalitis (except that caused by tuberculosis or sexually transmitted disease) (20 sources) Encephalitis (except that caused by tuberculosis or sexually transmitted disease) Other injuries and conditions due to external causes (1 source) Unspecified injury of left elbow, initial encounter; Translations: [Unspecified injury of left elbow, initial encounter] Onset: 02-26-2021 Episodic Other non-traumatic joint disorders (2 sources) Pain in left elbow; Translations: [Pain in left elbow] Onset: 02-26-2021 Episodic Unclassified (20 sources) Non-smoker; Translations: [Non-smoker] 11-15-2019 Unclassified (20 sources) Unclassified (20 sources) History of traumatic brain injury Unclassified (20 sources) History of colitis Unclassified (20 sources) Encounter for screening for lipid disorder; Translations: [Patient encounter status] 11-15-2019 Unclassified (20 sources) ADD (attention deficit disorder) Unclassified (20 sources) Encounter for screening for malignant neoplasm of prostate (Renamed from Screening for prostate cancer); Translations: [Screening status] 11-15-2019 Unclassified (20 sources) BMI 28.0-28.9,adult Unclassified (20 sources) Sleep disturbance Unclassified (18 sources) Skin lesion of back Unclassified (20 sources) Unspecified Diagnosis 01-31-2021 Unclassified (20 sources) BMI 27.0-27.9,adult Unclassified (14 sources) Exposure to COVID-19 virus Unclassified (14 sources) Body aches Unclassified (14 sources) Onychomycosis of great toe Unclassified (14 sources) Therapeutic drug monitoring Unclassified (14 sources) ED (erectile dysfunction) Unclassified (20 sources) COVID-19 Unclassified (9 sources) Epididymal cyst Unclassified (6 sources) Left nephrolithiasis Unclassified (6 sources) Kidney mass Unclassified (1 source) Phlebitis of forearm Results Test Name Value Interpretation Reference Range Facil ity Vital Signs Date Time Vital Sign Value Performing Clinician Facility 09-20-2022 13:44-0400 Body temperature 98.2 [degF] Sue Arnold APRN.CNP Work Phone: [facility] 09-20-2022 13:44-0400 Body weight 76.2 kg Sue Arnold APRN.CNP Work Phone: [facility] 09-20-2022 13:44-0400 Diastolic blood pressure 77 mm[Hg] Sue Arnold APRN.CNP Work Phone: [facility] 09-20-2022 13:44-0400 Heart rate 93 /min Sue Arnold APRN.CNP Work Phone: [facility] 09-20-2022 13:44-0400 Respiratory rate 18 /min Sue Arnold APRN.CNP Work Phone: [facility] 09-20-2022 13:44-0400 SaO2% (BldA) [Mass fraction] 100 % Sue Arnold APRN.CNP Work Phone: [facility] 09-20-2022 13:44-0400 Systolic blood pressure 120 mm[Hg] Sue Arnold APRN.MIXING TECHNICIAN Work Phone: [facility] 07-01-2022 14:34-0400 Body height 170.18 cm Karlee Bar MA [facility]; [facility] Work Phone: 07-01-2022 14:34-0400 Body mass index (BMI) [Ratio] 28.82 kg/m2 Karlee Bar MA [facility]; [facility] Work Phone: 07-01-2022 14:34-0400 Body surface area Derived from formula 1.95 m2 Karlee Bar MA [facility]; [facility] Work Phone: 07-01-2022 14:34-0400 Body temperature 96.2 [degF] Karlee Bar MA [facility]; [facility] Work Phone: 07-01-2022 14:34-0400 Body weight 83.46 kg Karlee Bar MA [facility]; [facility] Work Phone: 07-01-2022 14:34-0400 Diastolic blood pressure 78 mm[Hg] Karlee Bar MA [facility]; [facility] Work Phone: Encounters Encounter Date Encounter Type Care Provider Facility Start: 09-20-2022 End: 09-20-2022 ambulatory ZAHRAA NEGRETE Facility:[facility] Start: 09-20-2022 End: 09-20-2022 Office outpatient new 30 minutes Sue Arnold APRN.MIXING TECHNICIAN Work Phone: [facility] Procedures Date Procedure Procedure Detail Performing Clinician Start: 09-22-2021 End: 09-22-2021 History and Physical Exam Comments: See Note; NOTES: [facility] Medical Records Department [address] [place] [address] History Physical Exam 09/22/21 1236 MR#: [id number] Acct: [id number] Name: JOHNY ROBERTO Rep #: [id number] : 1970 51 From: Itz Barkley MD PCP: Dr. Mary Cole, DO Status:REG ER Location: ED HPI - General General Date of Admission: 09/22/21 Date of Service: 09/22/21 Chief Complaint: Left kidney stone nausea vomiting HPI Narrative JOHNY ROBERTO, is a 51 M who presents with a 3.5 mm stone in the distal left ureter this is the third time in the emergency room with severe nausea vomiting and severe pain off and on has not been able to pass a stone and continues to have severe pain from the stone. PFSH Home Medications dextroamphetamine-amphetami ne ER 15 mg 24hr capsule,extend release 1 cap PO DAILY 09/22/21 [History Last Taken Unknown] hydrocodone-acetaminophen 5-325mg 5mg-325mg 1 tab PO Q6H PRN PRN Pain 09/22/21 [History Last Taken Unknown] ondansetron 4 mg disintegrating tablet 1 tab PO Q8 PRN Nausea 09/22/21 [History Last Taken Unknown] tamsulosin 0.4 mg capsule 1 cap PO DAILY 09/22/21 [History Last Taken Unknown] zolpidem 10 mg tablet 1 tab PO DAILY 09/22/21 [History Last Taken Unknown] Allergy/AdvReac Type Severity Reaction Status Date / Time acetaminophen [From Percocet] AdvReac Nausea Verified 09/22/21 09:55 oxycodone [From Percocet] AdvReac Nausea Verified 09/22/21 09:55 Social History household members: spouse current gender identity: male Smoking Status: Never smoker substance use type: does not use ROS Constitutional Constitutional: Denies chills, fever(s) or malaise Eyes Eyes: Denies blurry vision or change in vision ENT HEENT: Reports none Cardiovascular Cardiovascular: Denies chest pain or palpitations Respiratory/Chest Respiratory/Chest: Denies cough or shortness of breath with exertion Gastrointestinal Gastrointestinal: Denies abdominal pain, constipation or diarrhea Musculoskeletal Musculoskeletal: Denies back pain, joint stiffness or joint swelling Integumentary Integumentary: Denies dry skin, jaundice, lesions or rash Neurologic Neurologic: Denies confusion, syncope or weakness Psychiatric Psychiatric: Reports none; Denies anxiety or depression Endocrine Endocrinology: Denies excessive sweating, fatigue or flushing Hematologic/Lymphatic Hematologic/Lymphatic: Denies anemia, easy bleeding or easy bruising Vital Signs Vital Signs Vital Signs: 09/22/21 09:53 09/22/21 12:27 09/22/21 12:27 Temperature 97.6 F L 97.7 F L Temperature Source Temporal Oral Pulse Rate 82 81 81 Respiratory Rate 14 14 14 Blood Pressure 112/74 118/71 118/71 Blood Pressure Mean 86 86 86 Pulse Ox 100 Oxygen Delivery Method Room Air Weight Weight: 81.647 kg Body Mass Index (BMI) 28.1 Physical Exam Const alert and oriented x3 General Appearance: cooperative HEENT normocephalic, head/scalp atraumatic, EAC's normal and TM's normal bilaterally Eyes PERRL and EOMs intact bilaterally Pupil: sluggish Neck no lymphadenopathy, supple and no JVD General: trachea midline Lymph Lymphatic: no lymphadenopathy noted, lymphedema and lymphadenopathy Resp normal respiratory effort, normal air movement and clear to auscultation bilaterally Cardio regular rate, regular rhythm and peripheral pulses 2+ throughout GI soft to palpation, non-tender and non-distended Extremity normal capillary refill and no clubbing, cyanosis or edema General Extremity: no tenderness to palpation of joints or extremities Skin no rashes or lesions noted General Skin Exam: turgor normal Lesions: no lesions Rashes: no rashes Neuro CN's II-XII intact bilaterally Speech: speech normal Motor Exam: strength 5/5 throughout; Negative for general weakness Psych thought process normal, cooperative and affect normal Appearance: appropriate Results Medical Records Data Attestation: I reviewed the patient's medical records Lab / Micro Data Attestation: I reviewed the patient's lab results. Result Diagrams: 09/22/21 11:00 09/22/21 11:00 Labs: Laboratory Results - last 24 hr 09/22/21 11:00: WBC 16.4 H, RBC 4.71, Hgb 14.4, Hct 41.7, MCV 88.5, MCH 30.6, MCHC 34.5, RDW Std Deviation 41.2, RDW Coeff of Linda 12.7, Plt Count 173, MPV 10.7, Immature Gran % (Auto) 0.400, Neut % (Auto) 82.3 H, Lymph % (Auto) 7.9 L, [place] % (Auto) 9.0, Eos % (Auto) 0.2, Baso % (Auto) 0.2, Absolute Neuts (auto) 13.5 H, Absolute Lymphs (auto) 1.29, Nucleated RBC % 0 09/22/21 11:00: Sodium 139, Potassium 4.1, Chloride 109 H, Carbon Dioxide 27.0, Anion Gap 3 L, BUN 23 H, Creatinine 1.68 H, Estim Creat Clear Calc 48.09, Est GFR (MDRD) Af Amer 55 L, Est GFR (MDRD) Non-Af 46 L, BUN/Creatinine Ratio 13.7, Glucose 115 H, Calcium 8.8 09/22/21 11:27: Urine Color Yellow, Urine Clarity Clear, Urine pH 5.0, Ur Specific Banks 1.025, Urine Protein 15 H, Urine Glucose (UA) Normal, Urine Ketones 5 H, Urine Occult Blood Negative, Urine Nitrite Negative, Urine Bilirubin Negative, Urine Urobilinogen Normal, Ur Leukocyte Esterase Negative, Urine RBC 0 SEEN, Urine WBC 0-5 SEEN, Ur Squamous Epith Cells 0-5 SEEN, Urine Bacteria 0 SEEN, Urine Mucus 0 SEEN Radiology Impression Abdomen/Pelvis CT 09/22/21 10:10 IMPRESSION: 3.5 mm calculus at the left UVJ with trace hydronephrosis and mild hydroureter. Left perinephric/periureteral stranding with reactive-appearing retroperitoneal lymph nodes just possibility of urinary tract infection. Recommend correlating with urinalysis. Electronically Signed: Devyn Weeks MD (Brooks) at 11:37 EDT Reading Location ID and State: [address] [place] [address] , Service support , Assessment Plan Assessment/Plan (1) Renal colic on left side: PLAN: Admit for IV fluids Flomax pain control check a KUB tomorrow morning plan for intervention if he fails to pass a stone. (2) Kidney stone on left side: 09/22/21 1238 <Electronically signed by Itz Barkley MD> Cosigner Signature (if applicable): CC: Dr. Itz Barkley MD; Dr. Mary Cole, DO Signed Mary Cole DO Work Phone: Start: 09-22-2021 End: 09-22-2021 Abdomen/Pelvis without Cont Comments: See Note; NOTES: [facility] Imaging Services [address] [place] [address] Abdomen/Pelvis without Cont MR#: [id number] Acct: [id number] Name: JOHNY ROBERTO Rep #: [id number] : 1970 M 51 From: Devyn Weeks MD PCP: Dr. Mary Cole, DO Status: REG ER Study: Abdomen/Pelvis without Cont Date of Exam: 03/15 Exam# [id number] Ordering Dr: Vasquez Garcia DO EXAM: CT ABDOMEN AND PELVIS WITHOUT INTRAVENOUS CONTRAST CLINICAL INDICATION: WITH 5MM LEFT KIDNEY STONE DX YESTERDAY AT [facility] WHERE HE WAS SEEN TWICE FOR PAIN CONTROL WITH NO RELIEF. D/C WITH A PAIN MEDICATION AND ZOFRAN + PHENERGAN WITH NO RELIEF. TECHNIQUE: Helically acquired images were obtained of the abdomen and pelvis without intravenous contrast. This CT exam was performed using one or more of the following dose reduction techniques: automated exposure control, adjustment of the mA and/or kV according to patient size, and/or use of iterative reconstruction technique. This report was created using [employer] report generation technology. RADIATION DOSE: CTDIvol = 8.53 mGy, DLP = 507.29 mGy-cm COMPARISON: None FINDINGS: LOWER THORAX: Mild atelectasis in the lung bases. No cardiomegaly. No significant pericardial effusion. ABDOMEN: LIVER: Unremarkable. Homogeneous. GALLBLADDER AND BILE DUCTS: Unremarkable. No calcified gallstones. No gallbladder distention or wall edema. No intra- or extrahepatic biliary ductal dilation. PANCREAS: Unremarkable. No focal cystic mass. SPLEEN: Unremarkable. Normal size without focal cystic or solid mass. ADRENALS: Unremarkable. No nodules. KIDNEYS AND URETERS: 3.5 mm calculus at the left UVJ with trace hydronephrosis and mild hydroureter. Mild fat induration adjacent to the left kidney and left ureter. Normal renal size and position. STOMACH AND BOWEL: Unremarkable. No stomach or bowel distention. No focal inflammatory change. PELVIS: APPENDIX: No evidence of acute appendicitis. BLADDER: Unremarkable. REPRODUCTIVE: Unremarkable as visualized. No mass. ABDOMEN and PELVIS: INTRAPERITONEAL SPACE: Unremarkable. No ascites or other fluid collection. No free air. BONES/JOINTS: Unremarkable. No suspicious lytic or blastic abnormality. SOFT TISSUES: Unremarkable. No discrete abdominal or pelvic wall hernia. VASCULATURE: Unremarkable. Abdominal aorta is non-dilated. LYMPH NODES: Mildly enlarged retroperitoneal lymph nodes with short axis measuring up to [address]/Abdomen/Pelvis without Cont IMPRESSION: 3.5 mm calculus at the left UVJ with trace hydronephrosis and mild hydroureter. Left perinephric/periureteral stranding with reactive-appearing retroperitoneal lymph nodes just possibility of urinary tract infection. Recommend correlating with urinalysis. Electronically Signed: Devyn Weeks MD (Brooks) at 11:37 EDT Reading Location ID and State: [address] [place] [address] , Service support , CC: Dr. Vasquez Garcia DO; Dr. Mary Cole DO Access Developer: Signed Mary Cole DO Work Phone: Start: 09-21-2021 End: 09-21-2021 Urinalysis CONRADO OROPEZA Plan of Treatment Date Care Activity Detail Author Start: 10-23-2022 Influenza vaccination INFLUENZA (#1) [facility] Start: 07-01-2022 Procedure Education Eprescribed prescriptions (G8553) [facility]; [facility] Work Phone: Start: 02-22-2022 DEPRESSION ASSESSMENT DEPRESSION ASSESSMENT [facility] Start: 02-02-2022 Procedure Education Eprescribed prescriptions (G8553) [facility]; [facility] Work Phone: Start: 02-02-2022 Provider Instructions for Treatment [facility]; [facility] Work Phone: Start: 09-29-2021 Patient Education [facility]; [facility] Work Phone: Start: 09-29-2021 Procedure Education Eprescribed prescriptions (G8553) [facility]; [facility] Work Phone: Start: 09-29-2021 Provider Instructions for Treatment [facility]; [facility] Work Phone: Start: 09-17-2021 Procedure Education Eprescribed prescriptions (G8553) [facility]; [facility] Work Phone: Start: 09-17-2021 Provider Instructions for Treatment [facility]; [facility] Work Phone: Start: 08-21-2021 Procedure Education Eprescribed prescriptions (G8553) [facility]; [facility] Work Phone: Start: 04-27-2021 COVID-19 VACCINE (4 - Pfizer series) COVID-19 VACCINE (4 - Pfizer series) [facility] Start: 04-23-2021 Procedure Education Eprescribed prescriptions (G8553) [facility]; [facility] Work Phone: Start: 04-23-2021 Assay of folic acid serum FOLIC ACID SERUM (28387) [facility]; [facility] Work Phone: Start: 04-23-2021 Comprehensive metabolic panel METABOLIC PANEL, COMPREHENSIVE (92442) [facility]; [facility] Work Phone: Start: 04-23-2021 Blood count complete automated CBC (AUTO) (72189) [facility]; [facility] Work Phone: Start: 04-23-2021 Cyanocobalamin vitamin b-12 VITAMIN B-12 (CYANOCOBALAMIN) (42177) [facility]; [facility] Work Phone: Start: 04-23-2021 Assay of thyroid stimulating hormone tsh TSH (18701) [facility]; [facility] Work Phone: Start: 01-29-2021 Procedure Education Eprescribed prescriptions (G8553) [facility]; [facility] Work Phone: Start: 01-29-2021 Provider Instructions for Treatment Follow up if no improvement or if symptoms worsen [facility]; [facility] Work Phone: Start: 12-12-2020 Procedure Education Eprescribed prescriptions (G8553) [facility]; [facility] Work Phone: Start: 12-12-2020 [place] influenza INHOUSE Rapid Covid/ Flu A/ Flu B [facility]; [facility] Work Phone: Start: 12-06-2020 Hepatic function panel HEPATIC FUNCTION PANEL (77583) [facility]; [facility] Work Phone: Start: 11-06-2020 Hepatic function panel HEPATIC FUNCTION PANEL (85656) [facility]; [facility] Work Phone: Start: 10-07-2020 Procedure Education Eprescribed prescriptions (G8553) [facility]; [facility] Work Phone: Start: 09-16-2020 Procedure Education Eprescribed prescriptions (G8553) [facility]; [facility] Work Phone: Start: 09-16-2020 Provider Instructions for Treatment Follow up if no improvement or if symptoms worsen [facility]; [facility] Work Phone: Start: 02-29-2020 Procedure Education Eprescribed prescriptions (G8553) [facility]; [facility] Work Phone: Start: 02-29-2020 Provider Instructions for Treatment Punch Biopsy with Epi- back [facility]; [facility] Work Phone: Start: 12-22-2019 [place] influenza 2019 Novel Coronavirus (COVID-19), PARESH (51952) [facility] Work Phone: Start: 11-15-2019 Procedure Education Eprescribed prescriptions (G8553) [facility] Work Phone: Start: 11-15-2019 Provider Instructions for Treatment [facility] Work Phone: Start: 11-15-2019 Lipid panel LIPID PANEL (76575) [facility] Work Phone: Start: 11-15-2019 Assay of prostate specific antigen total PSA (PROSTATE SPECIFIC ANTIGEN) (V76.44) [facility] Work Phone: Start: 2019 SHINGRIX VACCINE (1 of 2) SHINGRIX VACCINE (1 of 2) [facility] Start: 2014 COLOGUARD (FIT-DNA) COLOGUARD (FIT-DNA) [facility] Start: 2014 Colonoscopy COLONOSCOPY [facility] Start: 2014 COLORECTAL CANCER SCREENING COLORECTAL CANCER SCREENING [facility] Start: [address] COLONOGRAPHY [facility] Start: 2014 DIABETES SCREEN DIABETES SCREEN [facility] Start: 2014 FECAL OCCULT BLOOD FECAL OCCULT BLOOD [facility] Start: 2014 SIGMOIDOSCOPY SIGMOIDOSCOPY [facility] Start: 02-15-2004 LIPID SCREEN LIPID SCREEN [facility] Start: 02-15-1988 Urine microalbumin profile DTAP,TDAP,TD (1 - Tdap) [facility] Start: 1987 HEPATITIS C SCREENING HEPATITIS C SCREENING [facility] Start: 1987 HIV SCREENING HIV SCREENING [facility] Start: 1969 HEPATITIS B (1 of 3 - 3-dose series) HEPATITIS B (1 of 3 - 3-dose series) [facility] Work Phone: [facility] Work Phone: [facility] Work Phone: [facility] Work Phone: [facility] Work Phone: [facility] Work Phone: [facility] Work Phone: Payers Date Payer Category Payer Unknown [id number] [id number] [id number] 1970 Unknown [id number] 2.16.84 [id number] 1969 Unknown [id number] 2.16.84 [id number] 1969 Unknown [id number] 2.16.84 [id number] 1969 Unknown [id number] 2.16.84 [id number] 1969 Unknown [id number] 2.16.84 [id number] 1969 Unknown [id number] 2.16.84 [id number] 1969 Unknown [id number] 2.16.84 [id number] Unknown [id number] Unknown Social History Date Type Detail Facility [facility]: [facility] Start: 09-20-2022 Tobacco use and exposure Smokeless t obacco non-user [facility] Start: 09-20-2022 Alcohol intake Current drinke r of alcohol (finding) [facility] Start: 09-20-2022 History of Social function [facility] Start: 09-20-2022 Tobacco use panel [facility] Start: 09-20-2022 Alcohol Comment Occasional use [facility] Start: 1970 Sex Assigned At Not on file [facility] Clinical Notes 09-20-2022 Patient InstructionsWhSue ballesteros APRN.MIXING TECHNICIAN - 09/20/2022 1:51 PM EDT Note Date & Type Note Facility 09-20-2022 Note HNO ID: [id number] Author: Sue Arnold APRN.DINORAH Service: ? Author Type: Nurse Practitioner Type: Progress Notes Filed: 09/20/2022 2:25 PM Note Text: September 20, 2022 HPI: Johny Roberto is a 52 year old male who presents today for Pain (foot) (Patient presents with B/L foot pain/blisters. He complains of R 2nd toe pain/discoloration/swelling, symptoms started yesterday after running in a marathon. ) Patient presents to urgent care with complaints of bilateral foot pain. He ran an ultramarathon yesterday. He ran 41 miles. He states that the conditions were poor due to the rain. He has multiple blisters on his feet. He also has pain to several toenails. He states that he has lost toenails in the past with long distance running. He has intact bullae on bilateral feet. He denies other complaints at this time. He states that yesterday after he ran he was at the aid station and they suspect that he collapsed from exhaustion. He states that he feels fine today. He has had no weakness or dizziness. He had no fever or chills. He has had no nausea or vomiting. His did wound care to his bilateral feet before coming to the urgent care. History reviewed. No pertinent past medical history. History reviewed. No pertinent surgical history. History reviewed. No pertinent family history. Social History Tobacco Use Smoking status: Never Smokeless tobacco: Never Vaping Use Vaping Use: Never used Substance Use Topics Alcohol use: Yes Comment: Occasional use Drug use: Not Currently ALLERGIES Allergen Reactions Acetaminophen GI Upset Oxycodone GI Upset Oxycodone-Acetamino* Unknown Immunization History Administered Date(s) Administered COVID-19 original vaccine, age 12+ yr, monovalent (Boracci - PERKINS TOP) 03/02/2021 COVID-19 original vaccine, age 12+ yr, monovalent (Boracci - PURPLE TOP) 05/06/2020 05/27/2020 Current Medications: amphetamine-dextroamphetamine XR (ADDERALL XR) 15 mg biphasic capsule Take by mouth. zolpidem (AMBIEN) 10 mg Take 10 mg by mouth daily at bedtime. amoxicillin-clavulanic acid (AUGMENTIN) 875-125 mg per tablet Take 1 tablet by mouth every 12 hours for 7 days. Review of Systems Constitutional: Negative for chills, diaphoresis, fever and malaise/fatigue. HENT: Negative for ear pain, sinus pain and sore throat. Eyes: Negative for blurred vision, double vision, pain, discharge and redness. Respiratory: Negative for cough, hemoptysis, shortness of breath, wheezing and stridor. Cardiovascular: Negative for chest pain, orthopnea and leg swelling. Gastrointestinal: Negative for abdominal pain, diarrhea, nausea and vomiting. Genitourinary: Negative for dysuria, frequency and urgency. Musculoskeletal: Negative for back pain, joint pain (margie feet), myalgias and neck pain. Skin: Negative for rash. Neurological: Negative for dizziness, weakness and headaches. Endo/Heme/Allergies: Negative for environmental allergies. Does not bruise/bleed easily. Psychiatric/Behavioral: Negative. Objective BP 120/77 Pulse 93 Temp 98.2 Resp 18 Wt 168 lb (76.2kg) SpO2 100% Physical Exam Constitutional: General: He is not in acute distress. Appearance: Normal appearance. He is normal weight. He is not ill-appearing, toxic-appearing or diaphoretic. HENT: Head: Normocephalic and atraumatic. Right Ear: Tympanic membrane normal. Left Ear: Tympanic membrane normal. Nose: Nose normal. Mouth/Throat: Mouth: Mucous membranes are moist. Pharynx: Oropharynx is clear. No posterior oropharyngeal erythema. Eyes: General: No scleral icterus. Extraocular Movements: Extraocular movements intact. Conjunctiva/sclera: Conjunctivae normal. Pupils: Pupils are equal, round, and reactive to light. Cardiovascular: Rate and Rhythm: Normal rate and regular rhythm. Pulses: Normal pulses. Heart sounds: No murmur heard. Pulmonary: Effort: Pulmonary effort is normal. No respiratory distress. Breath sounds: Normal breath sounds. No stridor. No wheezing. Abdominal: General: Bowel sounds are normal. Palpations: Abdomen is soft. Tenderness: There is no abdominal tenderness. Musculoskeletal: General: Tenderness present. Normal range of motion. Cervical back: Neck supple. No rigidity or tenderness. Right lower leg: No edema. Left lower leg: No edema. Comments: Patient with bullae to the distal tip of the second digit on the right foot. The nail is loose but it remains intact at this time. He also has bullae to his third and fourth toes and also to the underside of bilateral feet at the distal metatarsals. The left foot is less severe than the right. He does have multiple bullae that are intact on the left foot. He has no redness. He has no drainage. He has no significant swelling. Lymphadenopathy: Cervical: No cervical adenopathy. Skin: General: Skin is warm and dry. Capillary Refill: Capillary refill (more content not included)... [facility] 09-20-2022 Instructions Sue Arnold APRN.[facility] - 09/20/2022 2:15 PM EDT Wash the feet with antibacterial soap and water. Bacitracin or triple antibiotic cream to the feet. Wrap gently and monitor for infection closely. Start Augmentin if signs of infection you are likely to lose several toe nails. Follow up with podiatry for further care. [facility] [address] [place] [address] [address] [place] [phone] JANESSA VICENTE DPM [id number] [facility] [place] [phone] documented in this encounter [facility] 09-20-2022 History of Presen t illness Narrative September 20, 2022 HPI: Johny Roberto is a 52 year old male who presents today for Pain (foot) (Patient presents with B/L foot pain/blisters. He complains of R 2nd toe pain/discoloration/swelling, symptoms started yesterday after running in a marathon. ) Patient presents to urgent care with complaints of bilateral foot pain. He ran an ultramarathon yesterday. He ran 41 miles. He states that the conditions were poor due to the rain. He has multiple blisters on his feet. He also has pain to several toenails. He states that he has lost toenails in the past with long distance running. He has intact bullae on bilateral feet. He denies other complaints at this time. He states that yesterday after he ran he was at the aid station and they suspect that he collapsed from exhaustion. He states that he feels fine today. He has had no weakness or dizziness. He had no fever or chills. He has had no nausea or vomiting. His did wound care to his bilateral feet before coming to the urgent care. History reviewed. No pertinent past medical history. History reviewed. No pertinent surgical history. History reviewed. No pertinent family history. Social History Tobacco Use Smoking status: Never Smokeless tobacco: Never Vaping Use Vaping Use: Never used Substance Use Topics Alcohol use: Yes Comment: Occasional use Drug use: Not Currently ALLERGIES Allergen Reactions Acetaminophen GI Upset Oxycodone GI Upset Oxycodone-Acetamino* Unknown Immunization History Administered Date(s) Administered COVID-19 original vaccine, age 12+ yr, monovalent (Boracci - PERKINS TOP) 03/02/2021 COVID-19 original vaccine, age 12+ yr, monovalent (Boracci - PURPLE TOP) 05/06/2020 05/27/2020 Current Medications: amphetamine-dextroamphetamine XR (ADDERALL XR) 15 mg biphasic capsule Take by mouth. zolpidem (AMBIEN) 10 mg Take 10 mg by mouth daily at bedtime. amoxicillin-clavulanic acid (AUGMENTIN) 875-125 mg per tablet Take 1 tablet by mouth every 12 hours for 7 days. Review of Systems Constitutional: Negative for chills, diaphoresis, fever and malaise/fatigue. HENT: Negative for ear pain, sinus pain and sore throat. Eyes: Negative for blurred vision, double vision, pain, discharge and redness. Respiratory: Negative for cough, hemoptysis, shortness of breath, wheezing and stridor. Cardiovascular: Negative for chest pain, orthopnea and leg swelling. Gastrointestinal: Negative for abdominal pain, diarrhea, nausea and vomiting. Genitourinary: Negative for dysuria, frequency and urgency. Musculoskeletal: Negative for back pain, joint pain (margie feet), myalgias and neck pain. Skin: Negative for rash. Neurological: Negative for dizziness, weakness and headaches. Endo/Heme/Allergies: Negative for environmental allergies. Does not bruise/bleed easily. Psychiatric/Behavioral: Negative. Objective BP 120/77 Pulse 93 Temp 98.2 Resp 18 Wt 168 lb (76.2kg) SpO2 100% Physical Exam Constitutional: General: He is not in acute distress. Appearance: Normal appearance. He is normal weight. He is not ill-appearing, toxic-appearing or diaphoretic. HENT: Head: Normocephalic and atraumatic. Right Ear: Tympanic membrane normal. Left Ear: Tympanic membrane normal. Nose: Nose normal. Mouth/Throat: Mouth: Mucous membranes are moist. Pharynx: Oropharynx is clear. No posterior oropharyngeal erythema. Eyes: General: No scleral icterus. Extraocular Movements: Extraocular movements intact. Conjunctiva/sclera: Conjunctivae normal. Pupils: Pupils are equal, round, and reactive to light. Cardiovascular: Rate and Rhythm: Normal rate and regular rhythm. Pulses: Normal pulses. Heart sounds: No murmur heard. Pulmonary: Effort: Pulmonary effort is normal. No respiratory distress. Breath sounds: Normal breath sounds. No stridor. No wheezing. Abdominal: General: Bowel sounds are normal. Palpations: Abdomen is soft. Tenderness: There is no abdominal tenderness. Musculoskeletal: General: Tenderness present. Normal range of motion. Cervical back: Neck supple. No rigidity or tenderness. Right lower leg: No edema. Left lower leg: No edema. Comments: Patient with bullae to the distal tip of the second digit on the right foot. The nail is loose but it remains intact at this time. He also has bullae to his third and fourth toes and also to the underside of bilateral feet at the distal metatarsals. The left foot is less severe than the right. He does have multiple bullae that are intact on the left foot. He has no redness. He has no drainage. He has no significant swelling. Lymphadenopathy: Cervical: No cervical adenopathy. Skin: General: Skin is warm and dry. Capillary Refill: Capillary refill takes less than 2 seconds. Findings: No petechiae or rash. Neurological: Mental Status: He is alert and oriented to person, place, and time. Sensory: No sensory deficit. Motor: No weakness. Psychiatric: Mood and Affect: Mood normal. Behavior: Behavior normal. MDM: I had lengthy conversation with the patient about wound care on his feet. I did cleanse bilateral feet with Hibiclens and saline. Dry thoroughly and applied bacitracin and put Telfa in between the toes to wick away any moisture. Silvadene was not available in the pyxis. I did apply gauze and Coban to bilateral feet. The right foot second digit has a loose toenail and an intact bullae. I did cleanse the wound with Hibiclens and did puncture the bullae to reduce the tension on the nail that was loose. The patient states he has had loss of toenails in the past after extended running. He did complete 41 miles yesterday. Due to the fact that he has macerated skin on the balls of bilateral feet and the potential for infection is high I did provide him with an antibiotic (Augmentin). He is to start this if he has any redness, foul-smelling drainage or swelling to the feet. Also provided him the number to follow-up with podiatry for reevaluation. We discussed in depth wound care to bilateral feet. After dressings were placed and secured with Coban to bilateral feet I did apply Johann wrap's bilaterally. The patient was recommended to keep the area open to air as able. And again close follow-up with podiatry. ASSESSMENT/PLAN: 1. Foot pain, right - ICD9: 729.5, ICD10: M79.671 (primary diagnosis) - BACITRACIN 500 UNIT/GRAM TOPICAL OINTMENT - AMOXICILLIN 875 MG-POTASSIUM CLAVULANATE 125 MG TABLET 2. Skin bullae on examination - ICD9: 694.9, ICD10: R23.8 - AMOXICILLIN 875 MG-POTASSIUM CLAVULANATE 125 MG TABLET Wash the feet with antibacterial soap and water. Bacitracin or triple antibiotic cream to the feet. Wrap gently and monitor for infection closely. Start Augmentin if signs of infection you are likely to lose several toe nails. Follow up with podiatry for further care. Sue Arnold APRN.DINORAH The above reflects my independent exam and review of the patient's medical record. I saw and examined the patient myself personally. Parts of the HPI, ROS, exam, impression and testing results may have been copied from the current or previous clinical notes and remain pertinent to today's visit. Current changes have been made and documented today. Other parts or data may have been deleted if not relevant for today. Plan as outlined above. documented in this encounter [facility] Name Dates Details Patient Instructions Indication:BMI 27.0-27.9,adult Start:29-Jan-2021 Instruction Type:Provider Instructions for Treatment How to Access Health Informa tion Online using Patient Portal and [employer] Apps Indication:BMI 27.0-27.9,adult Start:29-Jan-2021 Instruction Type:Patient Education Patient Instructions Indication:Non-smoker Start:12-Dec-2020 Instruction Type:Provider Instructions for Treatment How to Access Health Informa tion Online using Patient Portal and [employer] Apps Indication:Non-smoker Start:12-Dec-2020 Instruction Type:Patient Education Patient Instructions Indication:Non-smoker Start:07-Oct-2020 Instruction Type:Provider Instructions for Treatment How to Access Health Informa tion Online using Patient Portal and [employer] Apps Indication:Non-smoker Start:07-Oct-2020 Instruction Type:Patient Education Patient Instructions Indication:Non-smoker Start:16-Sep-2020 Instruction Type:Provider Instructions for Treatment How to Access Health Informa tion Online using Patient Portal and [employer]rd [employer] Apps Indication:Non-smoker Start:16-Sep-2020 Instruction Type:Patient Education How to Access Health Informa tion Online using Patient Portal and [employer]rd [employer] Apps Indication:Non-smoker Start:29-Feb-2020 Instruction Type:Patient Education Patient Instructions Indication:Non-smoker Start:29-Feb-2020 Instruction Type:Provider Instructions for Treatment How to access health informa tion online Indication:Non-smoker Start:15-Nov-2019 Instruction Type:Patient Education How to access health informa tion online - Detail Indication:Non-smoker Start:15-Nov-2019 Instruction Type:Patient Education Patient Instructions Indication:Non-smoker Start:15-Nov-2019 Instruction Type:Provider Instructions for Treatment [facility] Work Phone: Instructions* Name Dates Details Patient Instructions Indication:BMI 27.0-27.9,adult Start:23-Apr-2021 Instruction Type:Provider Instructions for Treatment How to Access Health Informa tion Online using Patient Portal and [employer]rd [employer] Apps Indication:BMI 27.0-27.9,adult Start:23-Apr-2021 Instruction Type:Patient Education Patient Instructions Indication:BMI 27.0-27.9,adult Start:29-Jan-2021 Instruction Type:Provider Instructions for Treatment How to Access Health Informa tion Online using Patient Portal and [employer]rd [employer] Apps Indication:BMI 27.0-27.9,adult Start:29-Jan-2021 Instruction Type:Patient Education Patient Instructions Indication:Non-smoker Start:12-Dec-2020 Instruction Type:Provider Instructions for Treatment How to Access Health Informa tion Online using Patient Portal and [employer]rd [employer] Apps Indication:Non-smoker Start:12-Dec-2020 Instruction Type:Patient Education Patient Instructions Indication:Non-smoker Start:07-Oct-2020 Instruction Type:Provider Instructions for Treatment How to Access Health Informa tion Online using Patient Portal and [employer]rd [employer] Apps Indication:Non-smoker Start:07-Oct-2020 Instruction Type:Patient Education Patient Instructions Indication:Non-smoker Start:16-Sep-2020 Instruction Type:Provider Instructions for Treatment How to Access Health Informa tion Online using Patient Portal and [employer]rd [employer] Apps Indication:Non-smoker Start:16-Sep-2020 Instruction Type:Patient Education How to Access Health Informa tion Online using Patient Portal and [employer]rd [employer] Apps Indication:Non-smoker Start:29-Feb-2020 Instruction Type:Patient Education Patient Instructions Indication:Non-smoker Start:29-Feb-2020 Instruction Type:Provider Instructions for Treatment How to access health informa tion online Indication:Non-smoker Start:15-Nov-2019 Instruction Type:Patient Education How to access health informa tion online - Detail Indication:Non-smoker Start:15-Nov-2019 Instruction Type:Patient Education Patient Instructions Indication:Non-smoker Start:15-Nov-2019 Instruction Type:Provider Instructions for Treatment [facility] Work Phone: Instructions* Name Dates Details Patient Instructions Indication:BMI 27.0-27.9,adult Start:23-Apr-2021 Instruction Type:Provider Instructions for Treatment How to Access Health Informa tion Online using Patient Portal and [employer]rd [employer] Apps Indication:BMI 27.0-27.9,adult Start:23-Apr-2021 Instruction Type:Patient Education Patient Instructions Indication:BMI 27.0-27.9,adult Start:29-Jan-2021 Instruction Type:Provider Instructions for Treatment How to Access Health Informa tion Online using Patient Portal and [employer]rd [employer] Apps Indication:BMI 27.0-27.9,adult Start:29-Jan-2021 Instruction Type:Patient Education Patient Instructions Indication:Non-smoker Start:12-Dec-2020 Instruction Type:Provider Instructions for Treatment How to Access Health Informa tion Online using Patient Portal and [employer]rd [employer] Apps Indication:Non-smoker Start:12-Dec-2020 Instruction Type:Patient Education Patient Instructions Indication:Non-smoker Start:07-Oct-2020 Instruction Type:Provider Instructions for Treatment How to Access Health Informa tion Online using Patient Portal and [employer]rd [employer] Apps Indication:Non-smoker Start:07-Oct-2020 Instruction Type:Patient Education Patient Instructions Indication:Non-smoker Start:16-Sep-2020 Instruction Type:Provider Instructions for Treatment How to Access Health Informa tion Online using Patient Portal and [employer]rd [employer] Apps Indication:Non-smoker Start:16-Sep-2020 Instruction Type:Patient Education How to Access Health Informa tion Online using Patient Portal and [employer]rd [employer] Apps Indication:Non-smoker Start:29-Feb-2020 Instruction Type:Patient Education Patient Instructions Indication:Non-smoker Start:29-Feb-2020 Instruction Type:Provider Instructions for Treatment How to access health informa tion online Indication:Non-smoker Start:15-Nov-2019 Instruction Type:Patient Education How to access health informa tion online - Detail Indication:Non-smoker Start:15-Nov-2019 Instruction Type:Patient Education Patient Instructions Indication:Non-smoker Start:15-Nov-2019 Instruction Type:Provider Instructions for Treatment [facility]; [facility] Work Phone: Instructions* Name Dates Details Patient Instructions Indication:BMI 28.0-28.9,adult Start:21-Aug-2021 Instruction Type:Provider Instructions for Treatment How to Access Health Informa tion Online using Patient Portal and [employer]rd [employer] Apps Indication:BMI 28.0-28.9,adult Start:21-Aug-2021 Instruction Type:Patient Education Patient Instructions Indication:BMI 27.0-27.9,adult Start:23-Apr-2021 Instruction Type:Provider Instructions for Treatment How to Access Health Informa tion Online using Patient Portal and [employer]rd [employer] Apps Indication:BMI 27.0-27.9,adult Start:23-Apr-2021 Instruction Type:Patient Education Patient Instructions Indication:BMI 27.0-27.9,adult Start:29-Jan-2021 Instruction Type:Provider Instructions for Treatment How to Access Health Informa tion Online using Patient Portal and [employer]rd [employer] Apps Indication:BMI 27.0-27.9,adult Start:29-Jan-2021 Instruction Type:Patient Education Patient Instructions Indication:Non-smoker Start:12-Dec-2020 Instruction Type:Provider Instructions for Treatment How to Access Health Informa tion Online using Patient Portal and [employer]rd [employer] Apps Indication:Non-smoker Start:12-Dec-2020 Instruction Type:Patient Education Patient Instructions Indication:Non-smoker Start:07-Oct-2020 Instruction Type:Provider Instructions for Treatment How to Access Health Informa tion Online using Patient Portal and [employer]rd [employer] Apps Indication:Non-smoker Start:07-Oct-2020 Instruction Type:Patient Education Patient Instructions Indication:Non-smoker Start:16-Sep-2020 Instruction Type:Provider Instructions for Treatment How to Access Health Informa tion Online using Patient Portal and [employer]rd [employer] Apps Indication:Non-smoker Start:16-Sep-2020 Instruction Type:Patient Education How to Access Health Informa tion Online using Patient Portal and [employer]rd [employer] Apps Indication:Non-smoker Start:29-Feb-2020 Instruction Type:Patient Education Patient Instructions Indication:Non-smoker Start:29-Feb-2020 Instruction Type:Provider Instructions for Treatment How to access health informa tion online Indication:Non-smoker Start:15-Nov-2019 Instruction Type:Patient Education How to access health informa tion online - Detail Indication:Non-smoker Start:15-Nov-2019 Instruction Type:Patient Education Patient Instructions Indication:Non-smoker Start:15-Nov-2019 Instruction Type:Provider Instructions for Treatment [facility] Work Phone: Instructions* Name Dates Details Patient Instructions Indication:BMI 28.0-28.9,adult Start:21-Aug-2021 Instruction Type:Provider Instructions for Treatment How to Access Health Informa tion Online using Patient Portal and [employer]rd [employer] Apps Indication:BMI 28.0-28.9,adult Start:21-Aug-2021 Instruction Type:Patient Education Patient Instructions Indication:BMI 27.0-27.9,adult Start:23-Apr-2021 Instruction Type:Provider Instructions for Treatment How to Access Health Informa tion Online using Patient Portal and [employer] Indication:BMI 27.0-27.9,adult Start:23-Apr-2021 Instruction Type:Patient Education Patient Instructions Indication:BMI 27.0-27.9,adult Start:29-Jan-2021 Instruction Type:Provider Instructions for Treatment How to Access Health Informa tion Online using Patient Portal and [employer]rd [employer] Apps Indication:BMI 27.0-27.9,adult Start:29-Jan-2021 Instruction Type:Patient Education Patient Instructions Indication:Non-smoker Start:12-Dec-2020 Instruction Type:Provider Instructions for Treatment How to Access Health Informa tion Online using Patient Portal and [employer] Apps Indication:Non-smoker Start:12-Dec-2020 Instruction Type:Patient Education Patient Instructions Indication:Non-smoker Start:07-Oct-2020 Instruction Type:Provider Instructions for Treatment How to Access Health Informa tion Online using Patient Portal and [employer] Apps Indication:Non-smoker Start:07-Oct-2020 Instruction Type:Patient Education Patient Instructions Indication:Non-smoker Start:16-Sep-2020 Instruction Type:Provider Instructions for Treatment How to Access Health Informa tion Online using Patient Portal and [employer] Apps Indication:Non-smoker Start:16-Sep-2020 Instruction Type:Patient Education How to Access Health Informa tion Online using Patient Portal and [employer] Apps Indication:Non-smoker Start:29-Feb-2020 Instruction Type:Patient Education Patient Instructions Indication:Non-smoker Start:29-Feb-2020 Instruction Type:Provider Instructions for Treatment How to access health informa tion online Indication:Non-smoker Start:15-Nov-2019 Instruction Type:Patient Education How to access health informa tion online - Detail Indication:Non-smoker Start:15-Nov-2019 Instruction Type:Patient Education Patient Instructions Indication:Non-smoker Start:15-Nov-2019 Instruction Type:Provider Instructions for Treatment [facility] Work Phone: Instructions* Name Dates Details Patient Instructions Indication:Non-smoker Start:17-Sep-2021 Instruction Type:Provider Instructions for Treatment How to Access Health Informa tion Online using Patient Portal and [employer]rd [employer] Apps Indication:Non-smoker Start:17-Sep-2021 Instruction Type:Patient Education Patient Instructions Indication:BMI 28.0-28.9,adult Start:21-Aug-2021 Instruction Type:Provider Instructions for Treatment How to Access Health Informa tion Online using Patient Portal and [employer] Apps Indication:BMI 28.0-28.9,adult Start:21-Aug-2021 Instruction Type:Patient Education Patient Instructions Indication:BMI 27.0-27.9,adult Start:23-Apr-2021 Instruction Type:Provider Instructions for Treatment How to Access Health Informa tion Online using Patient Portal and [employer] Apps Indication:BMI 27.0-27.9,adult Start:23-Apr-2021 Instruction Type:Patient Education Patient Instructions Indication:BMI 27.0-27.9,adult Start:29-Jan-2021 Instruction Type:Provider Instructions for Treatment How to Access Health Informa tion Online using Patient Portal and [employer] Apps Indication:BMI 27.0-27.9,adult Start:29-Jan-2021 Instruction Type:Patient Education Patient Instructions Indication:Non-smoker Start:12-Dec-2020 Instruction Type:Provider Instructions for Treatment How to Access Health Informa tion Online using Patient Portal and [employer] Apps Indication:Non-smoker Start:12-Dec-2020 Instruction Type:Patient Education Patient Instructions Indication:Non-smoker Start:07-Oct-2020 Instruction Type:Provider Instructions for Treatment How to Access Health Informa tion Online using Patient Portal and [employer] Apps Indication:Non-smoker Start:07-Oct-2020 Instruction Type:Patient Education Patient Instructions Indication:Non-smoker Start:16-Sep-2020 Instruction Type:Provider Instructions for Treatment How to Access Health Informa tion Online using Patient Portal and [employer] Apps Indication:Non-smoker Start:16-Sep-2020 Instruction Type:Patient Education How to Access Health Informa tion Online using Patient Portal and [employer] Apps Indication:Non-smoker Start:29-Feb-2020 Instruction Type:Patient Education Patient Instructions Indication:Non-smoker Start:29-Feb-2020 Instruction Type:Provider Instructions for Treatment How to access health informa tion online Indication:Non-smoker Start:15-Nov-2019 Instruction Type:Patient Education How to access health informa tion online - Detail Indication:Non-smoker Start:15-Nov-2019 Instruction Type:Patient Education Patient Instructions Indication:Non-smoker Start:15-Nov-2019 Instruction Type:Provider Instructions for Treatment [facility]; [facility] Work Phone: Instructions* Name Dates Details Patient Instructions Indication:Non-smoker Start:17-Sep-2021 Instruction Type:Provider Instructions for Treatment How to Access Health Informa tion Online using Patient Portal and [employer] Apps Indication:Non-smoker Start:17-Sep-2021 Instruction Type:Patient Education Patient Instructions Indication:BMI 28.0-28.9,adult Start:21-Aug-2021 Instruction Type:Provider Instructions for Treatment How to Access Health Informa tion Online using Patient Portal and [employer] Apps Indication:BMI 28.0-28.9,adult Start:21-Aug-2021 Instruction Type:Patient Education Patient Instructions Indication:BMI 27.0-27.9,adult Start:23-Apr-2021 Instruction Type:Provider Instructions for Treatment How to Access Health Informa tion Online using Patient Portal and [employer] Apps Indication:BMI 27.0-27.9,adult Start:23-Apr-2021 Instruction Type:Patient Education Patient Instructions Indication:BMI 27.0-27.9,adult Start:29-Jan-2021 Instruction Type:Provider Instructions for Treatment How to Access Health Informa tion Online using Patient Portal and [employer] Apps Indication:BMI 27.0-27.9,adult Start:29-Jan-2021 Instruction Type:Patient Education Patient Instructions Indication:Non-smoker Start:12-Dec-2020 Instruction Type:Provider Instructions for Treatment How to Access Health Informa tion Online using Patient Portal and [employer] Apps Indication:Non-smoker Start:12-Dec-2020 Instruction Type:Patient Education Patient Instructions Indication:Non-smoker Start:07-Oct-2020 Instruction Type:Provider Instructions for Treatment How to Access Health Informa tion Online using Patient Portal and [employer] Apps Indication:Non-smoker Start:07-Oct-2020 Instruction Type:Patient Education Patient Instructions Indication:Non-smoker Start:16-Sep-2020 Instruction Type:Provider Instructions for Treatment How to Access Health Informa tion Online using Patient Portal and [employer] Apps Indication:Non-smoker Start:16-Sep-2020 Instruction Type:Patient Education How to Access Health Informa tion Online using Patient Portal and [employer] Apps Indication:Non-smoker Start:29-Feb-2020 Instruction Type:Patient Education Patient Instructions Indication:Non-smoker Start:29-Feb-2020 Instruction Type:Provider Instructions for Treatment How to access health informa tion online Indication:Non-smoker Start:15-Nov-2019 Instruction Type:Patient Education How to access health informa tion online - Detail Indication:Non-smoker Start:15-Nov-2019 Instruction Type:Patient Education Patient Instructions Indication:Non-smoker Start:15-Nov-2019 Instruction Type:Provider Instructions for Treatment [facility]; [facility] Work Phone: Instructions* Name Dates Details Patient Instructions Indication:Non-smoker Start:29-Sep-2021 Instruction Type:Provider Instructions for Treatment How to Access Health Informa tion Online using Patient Portal and [employer] Apps Indication:Non-smoker Start:29-Sep-2021 Instruction Type:Patient Education Patient Instructions Indication:Non-smoker Start:17-Sep-2021 Instruction Type:Provider Instructions for Treatment How to Access Health Informa tion Online using Patient Portal and [employer] Apps Indication:Non-smoker Start:17-Sep-2021 Instruction Type:Patient Education Patient Instructions Indication:BMI 28.0-28.9,adult Start:21-Aug-2021 Instruction Type:Provider Instructions for Treatment How to Access Health Informa tion Online using Patient Portal and [employer]rd [employer] Apps Indication:BMI 28.0-28.9,adult Start:21-Aug-2021 Instruction Type:Patient Education Patient Instructions Indication:BMI 27.0-27.9,adult Start:23-Apr-2021 Instruction Type:Provider Instructions for Treatment How to Access Health Informa tion Online using Patient Portal and [employer] Apps Indication:BMI 27.0-27.9,adult Start:23-Apr-2021 Instruction Type:Patient Education Patient Instructions Indication:BMI 27.0-27.9,adult Start:29-Jan-2021 Instruction Type:Provider Instructions for Treatment How to Access Health Informa tion Online using Patient Portal and [employer] Apps Indication:BMI 27.0-27.9,adult Start:29-Jan-2021 Instruction Type:Patient Education Patient Instructions Indication:Non-smoker Start:12-Dec-2020 Instruction Type:Provider Instructions for Treatment How to Access Health Informa tion Online using Patient Portal and [employer]rd [employer] Apps Indication:Non-smoker Start:12-Dec-2020 Instruction Type:Patient Education Patient Instructions Indication:Non-smoker Start:07-Oct-2020 Instruction Type:Provider Instructions for Treatment How to Access Health Informa tion Online using Patient Portal and [employer]rd [employer] Apps Indication:Non-smoker Start:07-Oct-2020 Instruction Type:Patient Education Patient Instructions Indication:Non-smoker Start:16-Sep-2020 Instruction Type:Provider Instructions for Treatment How to Access Health Informa tion Online using Patient Portal and [employer] Apps Indication:Non-smoker Start:16-Sep-2020 Instruction Type:Patient Education How to Access Health Informa tion Online using Patient Portal and [employer] Apps Indication:Non-smoker Start:29-Feb-2020 Instruction Type:Patient Education Patient Instructions Indication:Non-smoker Start:29-Feb-2020 Instruction Type:Provider Instructions for Treatment How to access health informa tion online Indication:Non-smoker Start:15-Nov-2019 Instruction Type:Patient Education How to access health informa tion online - Detail Indication:Non-smoker Start:15-Nov-2019 Instruction Type:Patient Education Patient Instructions Indication:Non-smoker Start:15-Nov-2019 Instruction Type:Provider Instructions for Treatment [facility]; [facility] Work Phone: Instructions* Name Dates Details Patient Instructions Indication:Non-smoker Start:02-Feb-2022 Instruction Type:Provider Instructions for Treatment How to Access Health Informa tion Online using Patient Portal and [employer]rd [employer] Apps Indication:Non-smoker Start:02-Feb-2022 Instruction Type:Patient Education Patient Instructions Indication:Non-smoker Start:29-Sep-2021 Instruction Type:Provider Instructions for Treatment How to Access Health Informa tion Online using Patient Portal and [employer]rd [employer] Apps Indication:Non-smoker Start:29-Sep-2021 Instruction Type:Patient Education Patient Instructions Indication:Non-smoker Start:17-Sep-2021 Instruction Type:Provider Instructions for Treatment How to Access Health Informa tion Online using Patient Portal and [employer]rd [employer] Apps Indication:Non-smoker Start:17-Sep-2021 Instruction Type:Patient Education Patient Instructions Indication:BMI 28.0-28.9,adult Start:21-Aug-2021 Instruction Type:Provider Instructions for Treatment How to Access Health Informa tion Online using Patient Portal and [employer]rd [employer] Apps Indication:BMI 28.0-28.9,adult Start:21-Aug-2021 Instruction Type:Patient Education Patient Instructions Indication:BMI 27.0-27.9,adult Start:23-Apr-2021 Instruction Type:Provider Instructions for Treatment How to Access Health Informa tion Online using Patient Portal and [employer]rd [employer] Apps Indication:BMI 27.0-27.9,adult Start:23-Apr-2021 Instruction Type:Patient Education Patient Instructions Indication:BMI 27.0-27.9,adult Start:29-Jan-2021 Instruction Type:Provider Instructions for Treatment How to Access Health Informa tion Online using Patient Portal and [employer]rd [employer] Apps Indication:BMI 27.0-27.9,adult Start:29-Jan-2021 Instruction Type:Patient Education Patient Instructions Indication:Non-smoker Start:12-Dec-2020 Instruction Type:Provider Instructions for Treatment How to Access Health Informa tion Online using Patient Portal and [employer]rd [employer] Apps Indication:Non-smoker Start:12-Dec-2020 Instruction Type:Patient Education Patient Instructions Indication:Non-smoker Start:07-Oct-2020 Instruction Type:Provider Instructions for Treatment How to Access Health Informa tion Online using Patient Portal and [employer]rd [employer] Apps Indication:Non-smoker Start:07-Oct-2020 Instruction Type:Patient Education Patient Instructions Indication:Non-smoker Start:16-Sep-2020 Instruction Type:Provider Instructions for Treatment How to Access Health Informa tion Online using Patient Portal and [employer] Apps Indication:Non-smoker Start:16-Sep-2020 Instruction Type:Patient Education How to Access Health Informa tion Online using Patient Portal and [employer] Apps Indication:Non-smoker Start:29-Feb-2020 Instruction Type:Patient Education Patient Instructions Indication:Non-smoker Start:29-Feb-2020 Instruction Type:Provider Instructions for Treatment How to access health informa tion online Indication:Non-smoker Start:15-Nov-2019 Instruction Type:Patient Education How to access health informa tion online - Detail Indication:Non-smoker Start:15-Nov-2019 Instruction Type:Patient Education Patient Instructions Indication:Non-smoker Start:15-Nov-2019 Instruction Type:Provider Instructions for Treatment [facility]; [facility] Work Phone: Instructions* Name Dates Details Patient Instructions Indication:Non-smoker Start:01-Jul-2022 Instruction Type:Provider Instructions for Treatment How to Access Health Informa tion Online using Patient Portal and [employer]rd [employer] Apps Indication:Non-smoker Start:01-Jul-2022 Instruction Type:Patient Education Patient Instructions Indication:Non-smoker Start:02-Feb-2022 Instruction Type:Provider Instructions for Treatment How to Access Health Informa tion Online using Patient Portal and [employer]rd [employer] Apps Indication:Non-smoker Start:02-Feb-2022 Instruction Type:Patient Education Patient Instructions Indication:Non-smoker Start:29-Sep-2021 Instruction Type:Provider Instructions for Treatment How to Access Health Informa tion Online using Patient Portal and [employer]rd [employer] Apps Indication:Non-smoker Start:29-Sep-2021 Instruction Type:Patient Education Patient Instructions Indication:Non-smoker Start:17-Sep-2021 Instruction Type:Provider Instructions for Treatment How to Access Health Informa tion Online using Patient Portal and [employer] Apps Indication:Non-smoker Start:17-Sep-2021 Instruction Type:Patient Education Patient Instructions Indication:BMI 28.0-28.9,adult Start:21-Aug-2021 Instruction Type:Provider Instructions for Treatment How to Access Health Informa tion Online using Patient Portal and [employer]rd [employer] Apps Indication:BMI 28.0-28.9,adult Start:21-Aug-2021 Instruction Type:Patient Education Patient Instructions Indication:BMI 27.0-27.9,adult Start:23-Apr-2021 Instruction Type:Provider Instructions for Treatment How to Access Health Informa tion Online using Patient Portal and [employer]rd [employer] Apps Indication:BMI 27.0-27.9,adult Start:23-Apr-2021 Instruction Type:Patient Education Patient Instructions Indication:BMI 27.0-27.9,adult Start:29-Jan-2021 Instruction Type:Provider Instructions for Treatment How to Access Health Informa tion Online using Patient Portal and [employer]rd [employer] Apps Indication:BMI 27.0-27.9,adult Start:29-Jan-2021 Instruction Type:Patient Education Patient Instructions Indication:Non-smoker Start:12-Dec-2020 Instruction Type:Provider Instructions for Treatment How to Access Health Informa tion Online using Patient Portal and [employer]rd [employer] Apps Indication:Non-smoker Start:12-Dec-2020 Instruction Type:Patient Education Patient Instructions Indication:Non-smoker Start:07-Oct-2020 Instruction Type:Provider Instructions for Treatment How to Access Health Informa tion Online using Patient Portal and [employer]rd [employer] Apps Indication:Non-smoker Start:07-Oct-2020 Instruction Type:Patient Education Patient Instructions Indication:Non-smoker Start:16-Sep-2020 Instruction Type:Provider Instructions for Treatment How to Access Health Informa tion Online using Patient Portal and [employer]rd [employer] Apps Indication:Non-smoker Start:16-Sep-2020 Instruction Type:Patient Education How to Access Health Informa tion Online using Patient Portal and [employer]rd [employer] Apps Indication:Non-smoker Start:29-Feb-2020 Instruction Type:Patient Education Patient Instructions Indication:Non-smoker Start:29-Feb-2020 Instruction Type:Provider Instructions for Treatment How to access health informa tion online Indication:Non-smoker Start:15-Nov-2019 Instruction Type:Patient Education How to access health informa tion online - Detail Indication:Non-smoker Start:15-Nov-2019 Instruction Type:Patient Education Patient Instructions Indication:Non-smoker Start:15-Nov-2019 Instruction Type:Provider Instructions for Treatment [facility]; [facility] Work Phone: Summary Purpose Family History No Family History Records FoundNo Family History Records FoundNo Family History Records FoundNo Family History Records FoundNo Family History Records FoundNo Family History Records Found Advance Directives No Advanced Directives Records FoundNo Advanced Directives Records FoundNo Advanced Directives Records FoundNo Advanced Directives Records FoundNo Advanced Directives Records FoundNo Advanced Directives Records Found Instructions Name Dates Details How to access health informa tion online Indication:Non-smoker Start:15-Nov-2019 Instruction Type:Patient Education How to access health informa tion online - Detail Indication:Non-smoker Start:15-Nov-2019 Instruction Type:Patient Education Patient Instructions Indication:Non-smoker Start:15-Nov-2019 Instruction Type:Provider Instructions for Treatment Name Dates Details How to access health informa tion online Indication:Non-smoker Start:15-Nov-2019 Instruction Type:Patient Education How to access health informa tion online - Detail Indication:Non-smoker Start:15-Nov-2019 Instruction Type:Patient Education Patient Instructions Indication:Non-smoker Start:15-Nov-2019 Instruction Type:Provider Instructions for Treatment Name Dates Details How to access health informa tion online Indication:Non-smoker Start:15-Nov-2019 Instruction Type:Patient Education How to access health informa tion online - Detail Indication:Non-smoker Start:15-Nov-2019 Instruction Type:Patient Education Patient Instructions Indication:Non-smoker Start:15-Nov-2019 Instruction Type:Provider Instructions for Treatment Name Dates Details How to Access Health Informa tion Online using Patient Portal and [employer] Apps Indication:Non-smoker Start:29-Feb-2020 Instruction Type:Patient Education Patient Instructions Indication:Non-smoker Start:29-Feb-2020 Instruction Type:Provider Instructions for Treatment How to access health informa tion online Indication:Non-smoker Start:15-Nov-2019 Instruction Type:Patient Education How to access health informa tion online - Detail Indication:Non-smoker Start:15-Nov-2019 Instruction Type:Patient Education Patient Instructions Indication:Non-smoker Start:15-Nov-2019 Instruction Type:Provider Instructions for Treatment Medications Administered Section Inactive Administered Medications - up to 3 most recent administrations Medication Order MAR Action Action Date Dose Rate Site bacitracin 500 unit/gram 1 application topical ointment 1 application , TOPICAL, ONCE, 1 dose, On 09/20/22 at 1400, FOR EXTERNAL USE ONLY APPLY TO: FOOT Both Given 09/20/2022 2:16 PM EDT 1 application bacitracin 500 unit/gram 1 application topical ointment 1 application , TOPICAL, ONCE, 1 dose, On 09/20/22 at 1400, FOR EXTERNAL USE ONLY APPLY TO: FOOT Both Given 09/20/2022 2:16 PM EDT 1 application bacitracin 500 unit/gram 1 application topical ointment 1 application , TOPICAL, ONCE, 1 dose, On 09/20/22 at 1400, FOR EXTERNAL USE ONLY APPLY TO: FOOT Both 4 removed for a total of 6 Given 09/20/2022 2:15 PM EDT 1 application Additional Source Comments (unrecognized sect ion and content) No Status Records FoundNo Status Records FoundNo Status Records FoundNo Status Records FoundNo Status Records FoundNo Status Records Found INFORMATION SOURCE (unrecogn ized section and content) DATE CREATED AUTHOR AUTHOR'S ORGANIZ ATION 12/21/2019 [facility] DATE CREATED AUTHOR AUTHOR'S ORGANIZ ATION 04/07/2020 [facility] ([place]) DATE CREATED AUTHOR AUTHOR'S ORGANIZ ATION 11/27/2021 [facility] DATE CREATED AUTHOR AUTHOR'S ORGANIZ ATION 07/02/2022 [facility] DATE CREATED AUTHOR AUTHOR'S ORGANIZ ATION 09/20/2022 [facility] Source Comments (unrecognize d section and content) In the event this informatio n is protected by the Federal Confidentiality of Alcohol and Drug Abuse Patient Records regulations: The Federal rules restrict any use of the information to criminally investigate or prosecute any alcohol or drug abuse patient.[facility] Reason for Visit (unrecogniz ed section and content) Care Teams (unrecognized sec tion and content) FOR RECORDS PERTAINING TO PATIENTS WHO ARE OR HAVE BEEN ENROLLED IN A CHEMICAL DEPENDENCY/SUBSTANCEABUSE PROGRAM, SOME INFORMATION MAY BE OMITTED. This clinical summary was aggregated from multiple sources. Caution should be exercised in using it in the provision of clinical care. This summary normalizes information from multiple sources, and as a consequence, information in this document may materially change the coding, format and clinical context of patient data. In addition, data may be omitted in some cases. CLINICAL DECISIONS SHOULD BE BASED ON THE PRIMARY CLINICAL RECORDS. [facility] [employer] [facility]. provides no warranty or guarantee of the accuracy or completeness of information in this document.
== END | disposition home or self-care (01) ==
PROVIDERS: PCP Internal Medicine; Referring Provider Internal Medicine; Visit Provider Internal Medicine
DX: R05.9 Cough, unspecified (principal)
CPT/HCPCS: 71046

== ENCOUNTER → 2024-11-30 | Outpatient (CLI) | payer SELFPAY | END | disposition home or self-care (01) | LOC: LABSPEC 09:03 | PROVIDERS: PCP Internal Medicine; Visit Provider Physician Assistant Surgical | DX: R35.0 Frequency of micturition (principal) | CPT/HCPCS: 87086 ==